=== PATIENT | male | born 1955 | race Caucasian/White ===

== ENCOUNTER 2023-08-23 09:16 | Outpatient (OUT) | payer MEDICARE, SELFPAY ==
[2023-08-23 10:37] LABS: Prostate Specific Antigen Scrn 2.72 ng/mL (<=4.00)
== END 2023-08-23 09:17 | disposition home or self-care (01) ==
LOC: LAB 09:22
PROVIDERS: PCP Family Medicine; Visit Provider Family Medicine
DX: Z12.5 Encounter for screening for malignant neoplasm of prostate (principal)
CPT/HCPCS: 36415; G0103

== ENCOUNTER 2025-02-17 10:10 | Outpatient (OUT) | payer MEDICARE, SELFPAY ==
--- OUTSIDE RECORDS SUMMARY | 2025-02-17 10:22 | XMS_ITS | CCD ---
Author Organization [facility] Care Team Providers Care Transplant Nurse Name Role Phone DR MARY BRAUN Admitting Unavailable APARNA, DR MARY Braden Attending Unavailable APARNA, DR MARY Braden Consulting Unavailable APARNA, DR MARY Braden Admitting Unavailable , DR MARY Braden Attending Unavailable , DR MARY Braden Consulting Unavailable Mary Braun MD Primary Care Provider Mary Braun MD Unavailable MARY BRAUN Primary Care Unavailable CARLITOS HOLBROOK Attending Unavailable MARY BRAUN Primary Care Unavailable CARLITOS HOLBROOK Referring Unavailable MARY BRAUN Primary Care Unavailable CARLITOS HOLBROOK Attending Unavailable LULA RICHEY Attending Unavailable MARY BRAUN Primary Care Unavailable Mary Braun MD Primary Care Provider Provider, None Primary Care Unavailable YOON, QASIM T Admitting Unavailable YOON, QASIM T Attending Unavailable Provider, None Primary Care Unavailable YOON, QASIM T Admitting Unavailable YOON, QASIM T Attending Unavailable Nelsy, Soy Ballard Attending Unavailable Provider, None Primary Care Unavailable Nelsy, Soy H Admitting Unavailable YOON, QASIM T Attending Unavailable YOON, QASIM T Referring Unavailable YOON, QASIM T Referring Unavailable YOON, QASIM T Attending Unavailable YOON, QASIM T Referring Unavailable YOON, QASIM T Referring Unavailable YOON, QASIM T Attending Unavailable YOON, QASIM T Referring Unavailable YOON, QASIM T Attending Unavailable YOON, QASIM T Referring Unavailable YOON, QASIM T Attending Unavailable YOON, QASIM T Referring Unavailable Allergies Allergy Classification Reported Allergen(s) Allergy Type Date of Onset Reaction(s) Facility (5 sources) Penicillins; Translations: [PENICILLINS] Drug Allergy 07-12-2012 Rash, Unknown [facility] (8 sources) Penicillins Drug Allergy 07-12-2012 Rash [facility] (1 source) Penicillin; Translations: [penicillin] Drug Allergy [facility] Repository Medications Current Medications Medication Drug Class(es) Dates Sig (Normalized) Sig (Original) acetaminophen 325 mg / HYDROcodone bitartrate 5 mg oral tablet (4 sources) Opioid Agonist Start: 11-06-2024 End: 11-20-2024 take 1-2 tablets by mouth every four hours for pain HYDROcodone-acetam inophen (Jackson) 5-325 MG tablet Indications: Closed bimalleolar fracture of right ankle, initial encounter Take 1-2 tablets by mouth every 4 (four) hours if needed for severe pain (surgical pain) for up to 7 days 30 tablet 11/06/2024 11/20/2024 Active aspirin 325 mg oral tablet (6 sources) Platelet Aggregation Inhibitor, Nonsteroidal Anti-inflammatory Drug Start: 11-06-2024 End: 12-04-2024 take 1 tablet by mouth once daily aspirin 325 MG tablet Indications: Closed bimalleolar fracture of right ankle, initial encounter Take 1 tablet (325 mg) by mouth Daily for 21 days 21 tablet 11/06/2024 12/04/2024 Discontinued (Therapy completed) atorvastatin 40 mg oral tablet (4 sources) HMG-CoA Reductase Inhibitor Start: 07-12-2012 take 1 tablet by mouth once daily atorvastatin (LIPITOR) 40 mg tablet Take 1 tablet by mouth once daily. 0 07/12/2012 Active celecoxib 200 mg oral capsule (4 sources) Nonsteroidal Anti-inflammatory Drug Start: 07-12-2012 take 1 capsule by mouth once daily celecoxib (CELEBREX) 200 mg capsule Take 1 capsule by mouth once daily. 0 07/12/2012 Active ibuprofen 600 mg oral tablet (4 sources) Nonsteroidal Anti-inflammatory Drug Start: 11-06-2024 End: 12-04-2024 ibuprofen 600 MG tablet 600 mg 11/06/2024 12/04/2024 Discontinued (Therapy completed) Problems Active Problems Problem Classification Problem Date Documented Date Episodic/Chronic Essential hypertension (4 sources) Essential (primary) hypertension; Translations: [ESSENTIAL PRIMARY HYPERTENSION] Onset: 04-04-2022 Chronic Fracture of lower limb (9 sources) Closed bimalleolar fracture of right ankle; Translations: [Displaced bimalleolar fracture of right lower leg, initial encounter for closed fracture] Onset: 11-07-2024 11-06-2024 Episodic Melanomas of skin (4 sources) Melanoma in situ of lower limb; Translations: [Melanoma in situ of unspecified lower limb, including hip] 04-26-2021 Chronic Other ear and sense organ disorders (1 source) Hearing loss; Translations: [Unspecified hearing loss, unspecified ear] 08-23-2023 Chronic Other ear and sense organ disorders (1 source) Unspecified hearing loss, unspecified ear; Translations: [Unspecified hearing loss] 08-23-2023 Chronic Other ear and sense organ disorders (8 sources) Mixed conductive AND sensorineural hearing loss; Translations: [Mixed conductive and sensorineural hearing loss, unilateral, right ear with restricted hearing on the contralateral side] Onset: 09-27-2023 09-27-2023 Chronic Other ear and sense organ disorders (6 sources) Bilateral hearing loss; Translations: [Sensorineural hearing loss, unilateral, left ear, with restricted hearing on the contralateral side] Onset: 09-27-2023 09-27-2023 Chronic Other ear and sense organ disorders (1 source) Mixed conductive and sensorineural hearing loss, unilateral, right ear with restricted hearing on the contralateral side; Translations: [Mixed conductive and sensorineural hearing loss of right ear with restricted hearing of left ear] Onset: 09-27-2023 Chronic Other screening for suspected conditions (not mental disorders or infectious disease) (3 sources) Encounter for screening for malignant neoplasm of prostate; Translations: [Patient encounter status] Onset: 04-09-2022 08-23-2023 Episodic Unclassified (2 sources) CONTACT W/AND (SUSP) EXPOS COVID-19; Translations: [CONTACT W/AND (SUSP) EXPOS COVID-19] Onset: 05-10-2021 Viral infection (1 source) COVID-19; Translations: [COVID-19] Onset: 05-10-2021 Past or Other Problems Problem Classification Problem Date Documented Da te Episodic/Chronic Fever of unknown origin (1 source) Fever, unspecified; Translations: [FEVER UNSPECIFIED] Onset: 05-10-2021 Episodic Unclassified (1 source) CONTACT W/AND (SUSP) EXPOS COVID-19; Translations: [CONTACT W/AND (SUSP) EXPOS COVID-19] Onset: 05-06-2021 Results Test Name Value Interpretation Reference Range Facility XR Ankle - right 3 Viewson 0 12-04-2024 Imaging Result: Multiple view x-ray of the right ankle shows intact implant with no signs of loosening, lucency, or degradation. Alignment is intact. No signs of infection, tumor, dislocation. [facility] Radiology Study observation (narrative) [facility] XR Ankle - right 3 ViewsOrde red By: Nic Saha on 12-04-2024 [facility] [employer] Work Phone: XR Ankle - right 3 Viewson 0 11-20-2024 Imaging Result: Stephanie palacio, Three view, AP, lateral and mortise oblique, save today to the [facility] permanent record shows stable right ankle mortise. Hardware is intact in good position and alignment, medial and lateral. Films were reviewed with patient at length. [facility] Radiology Study observation (narrative) [facility] [employer] Coding Summaryon 11-18-2024 Coding Summary HTMLBase 64 EqqfugwcBOo2vAn+PGhlY WQ+PX5CYFYaF55kgJKhyG 5mG9GMCXoATgghTTADYTl ZOzMujeOmPN1biANbUVVi IC8+TM3mUPUzHuexxKBtf 3A7fPH9Y32bfm0vQHbsrL E8HCXmXnRorqxzj5zpxVx 6IDcuNmluOyBt HBFbsT27BZG4aR93Je72d WOpxEIog8xrvUq5QkZpWN OsYBZ0hUaaBOucb9LdKWC tM68bsLGli8S4 LPSxjZuscTVoZxJurVO4l W8sWNayjduab4dlrjruEh i7fb35dWKmu4B8kHD0U0S tefE0OBYnhILa WyzdaFGIkJ4zmnzbp9lmg oekYiQnPDToACm0EAp5SE RttQneJgJhWQ82NID0TRN vzsIyP1IsZXRx dByeRfM4k5X3Oz4ZJ0JGN ykfA3OGXRAXSRxpvPP+PC 04oj88B5IaPfwdCuq5YFW jINY9fKZ4gV1t YHAhYNkid7J1aZQ8H1Lbu lNjod6hu9wdCRNpBSugV5 2ttNHfu0G8SIKdlOG7ZHF nsCfbRwQsjH94 Oyc+TTHmvNava6KhTnefq 4yih2pnnVq0IsixGQGwwv GchVipVZJ2e7SnBc0lLAP owQS0gGY4kO1u HgDgIcV7JZpqC912VcSsh CLgRhkeF53oS9SkqFN+PH TqEru6FUSkcIhfVS0kF4P hZGRpbmctbGVm aEfsIY7vHYHawjboTZLko J8rMEMjT8d3EeDmNkP7KA osU3OyLEKurnwfYe38dO0 vVgDrGwT4OYdu D9PorwC0DVYqfUJeNSgiP XU3W79fs7A4YWXpIPTzWO G0hNU0wM7okJsjvslqnNG mdDsgdmVydGlj RTogVCjnZ757JHFdwSzcD kNvZGluZyBEYXRlOiAgMD cvMjEvMjAyNTwvdGQ+PHR mZRH8rIexNWNz vWOxSFipUj3mkPmetWsqB D4jWEGwiezaAVEboO1xVG CsiVFyuTjsIF4rWQMmibx ex728NuNaIUT1 KLJhpZJfS5ShgV7yAlIxF PCuWLLnD4QvwAUsIZdiV7 86ZHmbZxP3ZSNbapDkY3Y sLWFsaWduOiB0 g5S6Py0Ac8AzjflnI5Tnu KIsGyTwIvahTBj9B7NvRo wvdHI+OB71MXNwIQ25BZd 7TUL6pNkdUPkk NHVyL5FuwM9mHiWiWMBuG GRkOyc+PHRhYmxlIHdpZH RoPScxMDAlJyBzdHlsZT0 wHi7dQMLlMBQe rMajyAItYzNkp8etETGpQ AtiKV7hkFovJ4OgeMD0XR Wzq6u2Cg91Y79uY7HiaAS +VOTzxCH6jAH6 eT5jIaEgNkI7AEuwE265Q iQzbCKaShcok2uom0fxqP q9FjU3NSGqouWyaLkcLHM 6q9FmCk78D42i IHdpZHRoPSIxNSUiIHZhb Snave5siP8nFy3+PGNvbC C5eTE3zN9oNnQnKrH0OJu kM533AjJhaXLk Dfmag0hfz0rbwQn7LjHbJ EOkeuRxrVmtXEZ4u5XtJs 60J0BmcKwie9EnVlh6ss2 9xIWkg5I0yHW3 Q4CuULCynnarqIYqwYvoA H9fZTFoiqycBPFkjD7oAF RoJ2s4ThSiRxR9SZamD6X vkcX7WEQzoDBu OVTbtKJPrG1edskal7qfs xnqUePvIRLdXRs2ASb1RX QggDilTeEjZVJ8NxD9XRA 4aVGmkC1esRjv wajknY8sVmb+IPB0tYRre XCUKJ6aTvxjiTR+PHRkIH D6qTmmZTnkZHJynA7uFEV cO4m8EeWhIhG1 XPnjP1LauvU9IYZpoZZwH EIwkPJSnU7fkwnvp2ceyt haKfTrJTMzQYv5LWc5SHK saWduOiBsZWZ0 BmR9XSG6uMCkgS2xuPsda nlffP4iDkg+QmlydGggRG S0VOu5X0NzOas7QRUwpKa zLB9mtQDmJMrn Vt2fkPcppKspGN2pVVHlz evho761OhEys9agQMUkcI ErGZcoDDE4L46gu4I2DFD pLNFkQYZ8kCM3 fV9ddRzydunowVDzuDblf tOxcCopIWbhFRqlU793FK PpcSqvOtHpHMb8D1KiXxw 8KQZpuUhhQR6b uJMuYShdEr0gxSurmWxfJ Y2yLDVaulcjn468VaBof5 ntRSXbbGDwMOwxNXX1W07 vr9V6GNBqAMYe KBZ3oMC3yN8asHsckawov GVmdDsgdmVydGljYWwtYW kvL891JSGinXwmWoGytGo 4M2DvRfz8AYIt oPekAX9fpCUzTTytSl4zu PnjuZkoTX4aIQHicvxwf3 96KiDrf0qmFJQakRYcVLl kRMJ1N72wn2C8 HHGvIJZmUXU4cAE9xL8cs GlnbjogbGVmdDsgdmVydG pqFYsvOVttP071FGNffUi nPlBhdGllbnQg LNjgCIy0O3TnMhmqpSM+P B95QZYgFJ66uGWteRNqi0 pfaVe5UjTfUFAwTIL0oZg aPUwcs6BtQJFz I76wdJAsa5X1DBPdcLvgt WAzBvPzyPK3oP7dGAxfol kqc2ahlcteWbagv8mnqr7 3rB51E57kYVlb ZHRoPSIzMCUiIHZhbGlnb c6dlW2yYl6+RWAjdQP5cV B8wK7uLFCyAcE6PRxyO99 9InRvcCIvPjxj c8ery2sflLa2UqQ5AGPch mCwmIfjOLF6x0YzTr67I2 9sIHdpZHRoPSIyMCUiIHZ vxUlskv8ktV3d Ii8+RYAnkZX7bUD4kB7xR zVzIfU7ZGarH626QyHejK JuWwsaT74zR9WynKY+PHR eKjh7LQMtmVpx EQ4agAFwVBleTm1nMPJ2J lBrVuLiGXbfM2VtGPHxeh ofvillhDO9PPIpBULkxV1 9Nt6yjJjhXNCi oTKJwH4qxwojz5ohcghgA nNgNDMsMOi9RJo8ACOmhE klEnUsCNQ0FiL5UZW5tML mkP1goEuomchl eA6aA0TtXLPpzhejWd90k T6nUsNrXsQ8HTcbFje+Q0 9MTElOUywgSkVSUlkgTDw vdGQ+PHRkIHN0 bIpkEWhtMYAfaE4kKGYpP 5n0BnXaKmX4RUtxB1XvOS QtgezwVj53mI5dJyShGpN 6IBpyM9VrgqA2 AQVqmARbXCvwVYM8Y21sk 4E3WYFfLHQuUWK7pXW4pB 1hbGlnbjogbGVmdDsgdmV ydGljYWwtYWxp J079UBLrmMzgFoN6AjI5T sA4HBU1X6DjRbs0QPPesE ckCA9hqLNaWYmxOx4xzBz tvXglVC8sOJMu lvfdZQEicH9eTMIuqZFno LtpZW5hEMIxxwnro686Kk VvTRE9YQPryBSuJ6NvfK6 yOiAjMDAwMDAw P6MiuCQnJGhgY983QSexO nY2DGIxsgBpK7BsUGKimK ulFoS0l8K8Tp70TBDOFLT yczwvdGQ+PHRk QHO5jKzmYYhgNSMrbX2lW OFmZ5p7MiMgSiC9UDzmN8 FaZGXbfhqsCt82yI4sLoA pWnI3NHfwU2Kj uaI4OOMcwWZjMAkqJMA0C 41bv6S1PLYpBNLtQWC5cJ P6bI6vuSheonshqUVilBo gdmVydGljYWwt KKohS178UCYztZwjWw2CJ OG7P7NvCvz2MUHdmQiyBE 5gfONcKGjzMx2zeSpnbGn rWB9aLIJlojph BCDbvE1ePSVlgZIkvEgiJ Q9uAXIhtcchs447SjGbMT M9YQGlaSPeB8MigL9fDgH cMWBiJUUaB3Mw qQFiUDxxU373KMxxNqU5U KEodvQkG6PnKBYgcQlhKz V3t1A4Up7XHKgjJ7QhP7N yeTwvdGQ+PC90 eb55O9LgPwnfDpi5DJTzB ND7qBR2xB1cQHLkPPfii8 A7kDO1M0OjjiCkzu4ap4s yUIIlPBdeJ06z qDTyk4T0PUQmaWV0IUGnw JbmDwLomW10Cie+PGNvbG qnf6UtBzbdu7wym2fueMo 9IjMwJSIgdmFs vVltSTZ7o6RiXz87Q07wK HdpZHRoPSIzMCUiIHZhbG thky8hhG0yLf4+PGNvbCB 7jXD9wA9vEbHg TkI7OOpaS218UnXlaKSxK lnvb9ioe6jrwYf9LcUxXG GjzxPviHekUBE8f4OcFv9 7C5YjcUdik3Mw Izy1kz14uHMvz8N6hKS9Z 3BhZGRpbmctbGVmdDogMC 5jJBJsoecfZLGseT8jSEU bY7u2UsFvKrD0 UVpoL4MrbzA1KVEteDGiA STgcQQOvO9lvkxul6apmn onNbApFVPxTUz6QJm0TFE saWduOiBsZWZ0 RpC2JJR1wZHgwH1zoXpqf wrcqW8eFmw+NWv6x3zenC EnUR6hvFS0PU69OJ26fHQ px6B3vLM0Z1Ta GVIoburmctabmVE1FAZrX JMwwU61Ui1bbFjnRs7rXE LxOTY3MYLeaQFtF4IvnL1 yOiAjMDAwMDAw X8CchOJfMQmtY214JRlqA oD0XXScrvZwC3LnAOQhsC giEaV0s0Y6As5UBL81XK4 8IS42mHNti2F8 fIL5E3IcVMKgjmnzlxepq ZQ8SCIdOHOcrS63Sh8gwG drAt4cYKAqTZW6CWIbfVJ qV4EoxC6jCtEy ALUwRTZrB8AqhYQoUSixC 554ZPdkQfH4UQPbweAiM4 PjKCUxmFrdZdF3m7C5Dl5 BCz25RT96PU57 pGThd1Q3tNQ2V7TnFKHyi vmlztlggBE6ICCdSWAeoC 24Hv7zqRcdSj3lLZQtAZV 7YKXizVRmD9Vw qB4zWoRhIHTrMZHlU9Pwv HHoJHeyI298NKlsOjR5DF LdvcUbQ6KwILDumTrcKpM 9e7V8Od6QKOci cdt4O3UmHwhgcQN+PC90Y YUcVY25wKKwkPWyf1tacK g8BoEbRZDlCOJ5xGgtTBw on4KwLZDnB52u bGF (more content not included)... [facility] MAGR Intraoperative Recordon 11-14-2024 MAGR Intraoperative Record MAGR Intra-Op Record Summary Primary Physician: QASIM YOON DO Finalized Date/Time: 11/14/24 09:01:05 Pt. Name: PRESLEY DE DIOS/Sex: 1955 MALE Med Rec #: [id number] Physician: QASIM YOON DO Financial #: [id number] Pt. Type: D Room/Bed: [facility] Admit/Disch: 11/07/24 14:36:41 - 11/07/24 20:10:00 Institution: Case Times MAGR Entry 1 Patient In Room Time 11/07/24 17:37:00 Out Room Time 11/07/24 18:46:00 Anesthesia Start Time 11/07/24 17:37:00 Stop Time 11/07/24 18:51:00 Surgery Start Time 11/07/24 17:58:00 Stop Time 11/07/24 18:45:00 Last Modified By: Bhavana Wang RN 11/07/24 18:52:36 Case Attendance MAGR Entry 1 Entry 2 Entry 3 Case Attendee QASIM YOON Bradley MD Long, Barbara RN Role Performed Surgeon - Primary Anesthesiologist of Career Technical Supervisor Record Time In 11/07/24 17:37:00 11/07/24 17:37:00 11/07/24 17:37:00 Time Out 11/07/24 18:46:00 11/07/24 18:46:00 11/07/24 18:46:00 Procedure Open Reduction Internal Open Reduction Internal Open Reduction Internal Fixation Ankle Fixation Ankle Fixation Ankle Last Modified By: Bhavana Wang RN, Barbara RN Long, Barbara RN 11/07/24 18:52:37 11/07/24 18:52:37 11/07/24 18:52:37 Entry 4 Entry 5 Entry 6 Case Attendee Cira DUMONT, Mary Cintron SNAP SHEARER Heaven Glover SNAP SHEARER Role Performed Career Technical Supervisor Scrub Personnel Hardboard Grinder Time In 11/07/24 17:37:00 11/07/24 17:37:00 11/07/24 17:37:00 Time Out 11/07/24 18:46:00 11/07/24 18:46:00 11/07/24 18:46:00 Procedure Open Reduction Internal Open Reduction Internal Open Reduction Internal Fixation Ankle Fixation Ankle Fixation Ankle Last Modified By: Bhavana Wang RN, Barbara RN Long, Barbara RN 11/07/24 18:52:37 11/07/24 18:52:37 11/07/24 18:52:37 Entry 7 Entry 8 Case Attendee Melanie Alberto Luke T RT (R) SNAP SHEARER Role Performed Scrub Personnel Medical Imaging Specialist Time In 11/07/24 17:37:00 11/07/24 17:37:00 Time Out 11/07/24 18:46:00 11/07/24 18:46:00 Procedure Open Reduction Internal Open Reduction Internal Fixation Ankle Fixation Ankle Last Modified By: Bhavana Wang RN, Barbara RN 11/07/24 18:52:37 11/07/24 18:52:37 Surgical Procedures MAGR Pre-Care Text: A.20 Verifies operative procedure, surgical site, and laterality Im.150 Develops individualized plan of care Entry 1 Procedure Open Reduction Internal Primary Procedure Yes Fixation Ankle Primary Surgeon QASIM YOON DO Surgeon Comment ORIF RIGHT ANKLE - ARTHREX Start 11/07/24 17:50:00 Stop 11/07/24 18:45:00 Anesthesia Type General Surgical Service Orthopedics Wound Class Clean Technique Details Closure Technique Primary Entire procedure No was performed via laparoscope or robotic assistance Last Modified By: Bhavana Wang RN 11/07/24 18:52:45 Post-Care Text: O.730 The patient's care is consistent with the individualized perioperative plan of care General Case Data MAGR Pre-Care Text: A.350.1 Classifies surgical wound Entry 1 Case Information OR MAGR OR 05 Case Level Level 4 Wound Class Clean Specialty Orthopedics ASA Class 2 Diagnosis Preop Diagnosis FRACTURE RIGHT ANKLE Postop Same As Preop Yes Postop Diagnosis FRACTURE RIGHT ANKLE Blunt or No Is the procedure No penetrating injury considered occured prior to Emergent/Urgent? the start of the procedure: Last Modified By: Bhavana Wang RN 11/07/24 18:00:13 Post-Care Text: O.760 Patient receives consistent and comparable care regardless of the setting Time Out MAGR Entry 1 Procedure(s) Open Reduction Internal Fixation Ankle Time Out Checklist Verifications Team Introductions Yes Confirmed Identity, Yes Completed Procedure, Incision Site, and Consent(s) Presence of Yes Site Verification, Yes Necessary Site Marking, Site Procedural Marking Equipment, Devices, Alternative, and/or and Implants Site Marking Verified Exception in Accordance with Facility Policy Anesthesia Review Antibiotic Received Yes All Anesthesia Yes Within an Concerns Addressed Appropriate Time Interval Prior to Surgical Incision Surgeon Review Anticipated Blood Yes Expected Case Yes Loss Risk Addressed Duration Addressed Critical and Yes Non-Routine Steps to be Performed Addressed Nurse Review Equipment Yes Fire Risk Yes Checks/Concerns Assessment Addressed Completed and Interventions Performed Diagnostic and Yes Sterilization n/a Radiological Test Concerns Addressed Results Displayed are Appropriate and Labeled Other Concerns Yes Addressed Time Out QASIM YOON DO, Time Out Time 11/07/24 17:57:00 Participants Sherif Mccarty MD, Bhavana Wang RN, Cira RN, Baldemar Mayers Deanna SNAP SHEARER, Heaven Glover SNAP SHEARER, Melanie Alberto CSFEvelia SNAP SHEARER, Melquiades Gomez RT (R) Last Modified By: Bhavana Wang RN 11/07/24 18:01:13 Patient Positioning MAGR Pre-Care Text (more content not included)... [facility] MAGR Preoperative Recordon 0 11-14-2024 MAGR Preoperative Record MAGR Pre-Op Record Summary Primary Physician: QASIM YOON DO Finalized Date/Time: 11/14/24 12:36:32 Pt. Name: PRESLEY DE DIOS /Sex: 1955 MALE Med Rec #: [id number] Physician: QASIM YOON DO Financial #: [id number] Pt. Type: D Room/Bed: [facility] Admit/Disch: 11/07/24 14:36:41 - 11/07/24 20:10:00 Institution: Pre-Op Case Times MAGR Pre-Care Text: Patient will be optimally prepared for surgery. Patient is free from s/s of injury. Provide information to patient/family related to plan of care. Verify patient allergies. Confirm identity and verify consent before the operative or invasive procedure. Entry 1 Patient Arrival Time 11/07/24 14:45:00 Preop Departure 11/07/24 17:35:00 Last Modified By: Kathy Wiggins RN 11/14/24 12:36:28 Post-Care Text: Patient is prepared mentally and physically and is ready for surgery. The patient remains free from s/s of injury. Patient/family express understanding of plan of care and participate in decisions affecting his or her perioperrative plan of care. Allergies documented appropriately. Patient identifiers and consent correct. General Comments: pt arrives to W ambulatory. denies CP,cough,cold, COVID like symptoms. denies diabetes, pacemaker/defib, sleep apnea. pt verbalizes understanding of post op anesthesia orders including no driving for 24 hours Kathy wiggins RN ONLY entered pre-op d/c time to finalize chart Finalized By: Kathy Wiggins RN Document Signatures Signed By: Kathy Wiggins RN 11/14/24 12:36 [facility] Operative Report - Surgeon/P celestino 11-13-2024 Operative Report - Surgeon/Physician [id number] [facility] Coding Summaryon 11-12-2024 Coding Summary HTMLBase 64 XmrrpyacUYc3mPr+PGhlY WQ+FG8AQTUfX41riMVteO 2qP8LFONiXTndnYGCXTFl XAsHlmyBhAD8yaZXpUYBd IC8+AD8gROHaAjnxfBRhh 5R8wTB5O03njc9vCAtmmG X8JJIxWeGbsrirz8fnrZx 6IDcuNmluOyBt WPGtoG22SAB1pF92Sj53m JSpoLHrn2znnKb3CfHtLR NcUXA8yJcaOJbqi0HlVEA qV90fyWJaw0L7 LQUqoDgxqCIoStFjxBH4e Y2eDMafqwplx1idicpeXh d0am77dVZts0I9pQY3N8A gmoP6JPJdpWDc RxpwzQPNyO6jtaite0lzi iseRlKqROJiZGi1EEj0UM MfbLkgZoVkIX72BQH3QAJ qhfGhL5IyLMSk iXntGxA8u4P0Bj0CE2OCK lccH9QAVAQSFFgueZB+PC 16cz84O8XuPngvCep9JLP yAPW8jPS7jB4s TDYwGQseq3W7uPX9O2Kzk rNxfh4gs2apNLAoTVjmR7 6ylRSgk9P0RLXkwEV9AJT kjYxeXdFniH43 Oyc+ELAmxNpqo9EeUhvnp 6plh2ymxXm5WxlgRALmpz IzxElxXLV8k6NrFu2rNFI yvBT1xPQ6sP8t YqIdAkJ9UYrqR444TvNvc XGeNzxnY99cP2HekVO+PH GdPmb7YHAimSbtMP0iI9N hZGRpbmctbGVm eHphKY4eSALskrzdWWTac D4uMUDuX5a1DzFgEsF6RL smI3RlBTRlnajrPr60rT5 bWiXrEeI5EQck T2AuomX0VRQkrVIpGAwzH IN4K50tm6Z1XEQjTPZhRH I9rKG9cI4sqSaznvzhmQT mdDsgdmVydGlj YXhyHXudN720IJSjpQprD kNvZGluZyBEYXRlOiAgMD cvMTUvMjAyNTwvdGQ+PHR xJAR9eHmiHGWt yNUfPUwyGg7rySifmRqbO R4kJHEcnynrWBMfwE6tWO RqtOXfrBzcWS5sEXOvmor oy960UvGmENB1 NHOahDUjE8NsiE3nIpVmQ OPyGGJoX6SfoSYvARjoW0 89YFkiPhB2ZTYyumReW3A sLWFsaWduOiB0 u4L7Il8Hw1VuajnmO0Jkd XFkFvIjItwwBKv4L6HrFs wvdHI+YA84WQJaVM69UYt 0RZT9vKdpOSvs OUKhB7CccX4fSdShIQLoM GRkOyc+PHRhYmxlIHdpZH RoPScxMDAlJyBzdHlsZT0 uNl5lFZJiMBXp eDhkaFVeFlRrc7sjUNAtM WtnKW4qmLueT4TtrZM1WJ Tsf2m9Au88E97rB9JzmBG +SSEtgOU3nXJ5 yZ9cXbQjDyK1IJxdY297O vLldJSkBnjgr9jwl0ebnW p6DrO5WDFdpoSebNcaNAK 8e4LaMh23R31f IHdpZHRoPSIxNSUiIHZhb Fidzm8mvC2uWz4+PGNvbC Y3kBT4rH2sImKdUnZ3KRu sJ379NxOmsBEo Sejwy5zbs4ymjUi8SsFlA ROmxfGizOyiZMO1k2MvLp 83L0UmoBezj7PiRtu2ub1 3bHSdy2X3jMP7 Z6UyKNWvmmxqxGThdLjpE U2yJOWwwxxkEJFmnN1vOW MvK5r2MvGpOxM6NDkpL5T tqvJ1YBKsdPOl UHHjuELMwT0mwyylh0cxh glpQwBlWPPfBWw7NWg2JA DikMtsEaMeQOT4QaU3NRN 5kAZfqS3ceRjb ryjgsM8qFbc+LBT2xPBdj MTUQO8zVupaoRF+PHRkIH Z7qKapUTmiRGSjtV7nVRL gQ7t9ShMsZxJ1 PVxhY4YpyoW4DHDfdPNvS RFyfBTJfV7faisyk7fxhn qzWcKrQRIyMSg8COy5WWR saWduOiBsZWZ0 TaW3TWI0vHSguF5wfCshu ezhzA4nZkh+QmlydGggRG V9IUn0K2LzQmq1LOLdeTn oHW9qgXSaISwz Kb8nmBrqlCpzTB1iNXRpn ozwm592PpEgp5lqKTLajQ ApKImuCEK1I62ra0T5SFV cYDXiCSW0hIC7 tB2whUfcwxgqnNNsvNoye eEtaFxqGRpaKVtlO990YX GgsMyzTlBpMTa0D0QaPey 3UPEzvSpbWA7w cIWhVFniPg7vmYkmcKssS V1ePPFamjpzj059YqQqn1 bgKFUmbUNaXJmuNKJ4P08 wa8L2LSJmFYEn NNX9uQC1kN4zhCfovlmpx GVmdDsgdmVydGljYWwtYW nwU364NLPqvCooCqQwkVl 1H2RcEfw0WGZr mItlVO5geYCvKWkyVt5bb AnopDaiNF3iKQDbvilgs5 90WwBkr6ndAGMfwLEpDNf xTTL0K28rw6I6 QAVcMFRtZDX2kKM7fA9rc GlnbjogbGVmdDsgdmVydG jkNQtbOTgiK087OLCviOt nPlBhdGllbnQg UVwqVFi8H2MnIcpltYP+P Q12CMKeFZ00rVYfoUBbq5 shbYy9GfNwDELhZQS3cXe sBYthn1TxGAJt F14uuKEtq4W2TLEfrLygs FFmMwUefOV6zH2xFKqmve hcl3itdemkXemzc9lfjz0 9vG63T96eMEmz ZHRoPSIzMCUiIHZhbGlnb e9waM5eQb8+ITGtlMG2mD S7sC0oWMIyDkR7SFrfL77 9InRvcCIvPjxj o3mpy8krxOw1TcQ1HVZvc wBwkFwqBOI1a2AgRn15C4 9sIHdpZHRoPSIyMCUiIHZ aeRdzfe2izS6y Ii8+XRDosQZ0jBY3aB3sP qRhQwL7ZIzfG231EvNzpE QbLxcfK68lQ7CoaDA+PHR dDwa8YGLieAta QS3xqFJoNUuhKa7lNXE1Z wFtBwTtVEhlH6StPVLkab nwcorhrZZ5CKRzAYCfeN4 1Sa5yxIjaTZYz qKCZfR6dqlqok6zexepgX fMdTZTiTAz4BTz8UVVnmO riDwAsIUZ2KrX8JIT3aJX hjD8kmPahpbgy iQ9fA6JeIDQubukhIz16x A3rYeVkGgE8YYgvJmr+Q0 9MTElOUywgSkVSUlkgTDw vdGQ+PHRkIHN0 mDanNBrtLKVhoV3zLSPkV 2s8JsMbDnD0RVzuK1LgSW RrdnvkLs50vE3jTqNyVcZ 3NYtcR0RcweD0 EIRunLBhXVwtFGK7H20mf 9M9SIUiKDOdXIY7fYW9qR 1hbGlnbjogbGVmdDsgdmV ydGljYWwtYWxp F410YXZsmFxhBeW7BoX7H fW8DOE4C7DhXca3NCJgvY iqBN4ouQCrKGtvGa1beTx uaNiwUF9sTNOr kblkLZCtuN3dDNWziIZbj QdcTG1tKBXapinvv057Mt BxRLT7SWMwhKBzT3QngA1 yOiAjMDAwMDAw Z4OdpWIlPEqaX366THbaX vQ1XOJjmxJrN0RnBJPlzE llAeS9r3Y0Zw69ZUYRWGR yczwvdGQ+PHRk OAI4fWqqNFafIMMtkJ7uN DFgU6h2QeUeClI9PBhaL8 JqRKTfoichHq82pP7rByS bIqH0XJgtT4Cq hmM9GRXszPOcIMemMUR2O 71qv1V3WHHgGABvJDK4wZ F5jA2kaVwqiksrwDIxdSz gdmVydGljYWwt HGqdM243XVMqkFlzJv7AQ XF2X4CjBmq1HIImjHrnBJ 0vwNInBTndGm0ktWlrdHv zOS3xSQXfakcs ZESbbW1dXFQxuPLkcUtkC F3sCWCcybldr714RgVsIL R4UBRupQNmS2DvzN5kUjP kWMUcOGEcU9Ch wNZjOHriB898JVyvYoT2U IXsccRyW0OvKOHntDdqWb J0c0H5Ko7QiKVrG3XvH1l 3X8AwXqskiNT+ QW68LUTxPG24vJHpoSNqw 7nykOs7MyJjWMQqVZS8iC haRKdpg9KoRJYsD60bnNQ ru1N6JYFzyQyy jDKdBbEoqKS6xW7kGZaub fvaw6kqhkauZolte1ceon 40aM97X42yJQnfKKNmVSO zMCUiIHZhbGln xu6paK8lIl4+ELEonLI3b KL0hX1hLkWaOxK0BQokZ0 86KzUhnBRlXwemz5dhq6z bhBc9SkRwMHSb arYysBpaYPC0d4GjEn73G 29sIHdpZHRoPSIyMCUiIH WvyWvimy3udJ7iOn0+PC9 tt6gvwj24oN60 dHI+UXSjPQN3uZebMIhrM TRasW1rDRbnCrE5BHJxAl HngL36cGAiTBhzRk7byHf ypXekMT8jTHVa mvhin231HoNpc1odSAWzs RSkEMrbLLI4Y84sz7X2HM UcAJBuPFA4sDH4oF2cuLg nbjogbGVmdDsg xnTxuAryYAhrSOkuL373F OMvjLvmAoOsuBBjX7xgvn SJQZ0yEirynJD+PHRkIHN 0eWxlPSdwYWRk zP8qFBLmV3i1TeHyIdM6S CszB7MqrlL1UTBjdZVhZK MufIOWnF5frclid6mgvuf gIzAwMDAwMDt0 CZq9PDCzfIibAuBrRVA4I iL4OPS7xNOxaQ2huQuhuj mtwT5jXmb+RklOOjwvdGQ +RIIdOZI3tGpd EBgjIQYseF0fYQRkD5p0O jKkBxS0OAdoZ2IdwiZ0TB TauVKtPAVidEQVaW5esoc ji4amugdoLfBp UUReENi6GGo2HYTzmDzeF gYnUYC0BdG9UPN2dNTotD 7gvYyfuokmeI7nYwx+TVJ OOjwvdGQ+PHRk VXZ6tRnmPNzrEXUdzP3pH PIdL6r3JqViRgI6IAvkL3 EgtmB9VMCzrRHuOTIpyTA WeH8bssnor2ab xcolDmZmXEFbMBl7JKr7P NXmtGbxBcOrJJM8NfH3IM I8iJAzgW9dwNpyhhuicP2 wOyc+YIG9ATC9 LF40MH08U0MrLppkbEHfu +PHRhYmxlIHdpZHRoPS evNEQaYbQavUgqGB3xOc1 yZGVyLWNvbGxh cHN (more content not included)... [facility] Coding Summaryon 11-11-2024 Coding Summary HTMLBase 64 MlnjmkysTQx5mSd+PGhlY WQ+DB7MQJJxU89ilBDguR 0lU3TUOXpIAqmvOOTADTp FXaGyguJyKJ6qjEPgJIZs IC8+HX3iBMGlRyuqxUJnf 2R9nMW9C45xwb5kCTjssN B8WPHaCsLlbztcy8cynMj 6IDcuNmluOyBt HBArbU54FBY2iB46Cm29k CGqwUFse9tahAa9TeLvJD BpQGE7rQxeIJeru9RyHSA mG07whTSmo7G5 GOPynJswnEKpBvMahUP1t A2pNHzesgejc4vlbiajGr n4yc81jZPaj0S5rON2C2W vdvC3YLLvrWGo TnwknKZCcK7hixpig3nva veuWoQrIEBsITq8RDt9MB YizTvcMuAvNJ14MBH7HIZ fjfCqQ3BgHKEo dEgyCpS6y7D0Pg0UL5DNL dmqP1BIJHSXBJlwgWS+PC 79kn83C7KpNjyvBpo3ICV iYVQ5iDM7wW1u FAFqYWnpz0P1nDA7T2Obq vHamv6rg6ceCKQqFQqrL1 0jaWBnx3P5QFIgfXU5HBC cwJlrLcUpaO89 Oyc+DWTgsAfnn4YxRcflz 2jzp8ysfId1MducHXWafe XizNfgLZS8b5YdAm4wOOD trXX7uZT8tN1d LhPuXgM0AKejN177LuFpw IVbIxxfZ48aQ0DcdBA+PH AfGao5NBJbpWpdXS3sD5N hZGRpbmctbGVm vGwyUY5uGOOhsanrGXCdt A7sQJQfE6f8JuRiEgF9AT pwZ0KtPQItfyicCu37gM8 fCmHzNpH0NVfg R4LbyiG8BLOrfOFhQTlwM YJ5B94zd9S9OXXcLENcYP A8cDN2uJ2grDobndjygYU mdDsgdmVydGlj KZuqDCsiE864QQOwnCxyP kNvZGluZyBEYXRlOiAgMD cvMTQvMjAyNTwvdGQ+PHR aNAO1tKwsWTTo zOIpYHqtSz2omAcaqJhjR M0fPIPhvritSFKqfQ6hFY UhuFIptKphMB3vFGKanuq sg701ZvZoKFQ4 HCIpwLIcD6WcxM7gEaEjT ULhRPBtN8XcdGXwGOkvC8 39JWmqAgC8ZGKbknTvA5P sLWFsaWduOiB0 t2D0Ef2Ox1SzoljhT6Fmr YXfXlImMukjXLz1Y7CqGz wvdHI+RN17YCGmYC41TLo 0QBZ1gEhvIFze TCZzX8UgpI8cUjSpENRxX GRkOyc+PHRhYmxlIHdpZH RoPScxMDAlJyBzdHlsZT0 pKq6yDYZpMTFz uLgmvWIzCfRtp0dxATTlN TuqRT4nnExcG5DceWI2SZ Nvy2v6Nv82N16uY0DhmBE +VLItmKS9cBL1 nY6oZaVxSsQ2CRzbV657A sKrlHXdRlbpq3rxw0kwxG e8CgJ8MUUjafSgdWvoQXK 4g8ObSu81A43v IHdpZHRoPSIxNSUiIHZhb Vpsos2roM8wUc9+PGNvbC J9kUT1cX4ePaOcYfY4SVl bB451SoRonVHv Dbtso7jyn7pikRx0UhCaZ DGcyvRakJbdFBX6b4NxHj 36Z6UtjJmxr2XdBwi5ua0 2zTYgk9Q8cQA7 E7ChMCVukkecxDAgzSddU M9oGGVbnbwiLPLzoC9gPU YhJ3r9AzBfLlQ0INjiX6U anlN1FWKheVJx VUTgbHOEwL1ekmprj4qyj cnbGhVlBHKtJRv8CJl0WY SgtKtbOnXxVMT4JpV3CMM 2pARraD1evLvm nbknjQ1gMkl+YEV0uEJzu EPXDO8gUqmwtZJ+PHRkIH C8lOybMKgeGYXjtB4xOTM dP7w0WyDdLvO8 FYjuH4WaogH0SQTqhIGlX LDwwWPClL9wjivdp4yanu mnJkIaIAMkQNq9RSr0GRH saWduOiBsZWZ0 TcU7SET3bLBagQ4viAgcc kaohY4zFrw+QmlydGggRG G9ZUs1R2VaBqq5MWUzmIw wNE4ykRRxTSko Mu5prPmkmYbfFO8iKKTao awfc485CnWeu4lbVXYpgT LzYFxcJUB1Z55gb0M4BUK zSRJhJYT8sZY4 yE4lsOvdzowviSJcxHrhd zEtmAptACnaJKjuB616QA LftDenAjUiCBx3J9HaDbl 4HUBdpHucMX1b wXKsJViuFa5ogEelrPpkJ Q5hYUMxqwydv613AnVyz9 zgOIVetZYxGAlxXHD8P92 dh7F2IPRsLOXm QRR9cOZ8aG6tjVbqpdaym GVmdDsgdmVydGljYWwtYW kcE176ZVHfuUfgZqDxpTt 5Q1NhAul5XADf dNuqLT1spTHiQZjyAn5qd WkiuSsoBY8gXZWsayrda6 90NkHax1fnECChnGKyKId xDQJ2O09xt7Y5 BYHoGBLfJCF7fIL0hJ7ym GlnbjogbGVmdDsgdmVydG vkCWrtVWzeU473MCMqxQc nPlBhdGllbnQg COxoBGn9Q4RwFmzfzUQ+P K06NBGtJD57lAUnnJPzg3 haoLa4WxLsORHwVCS3uHu xOPxks4LoDCLc R36trLNba8U8GKJpeJuux QXmMpQrdAS9bU1lFWxkbs ymn0lxbayxXkamk0zras2 7xC40I96sAOuk ZHRoPSIzMCUiIHZhbGlnb r1swA6hYz6+BZYgbCW1dG M6fW0sUQZjUmQ8BTejN21 9InRvcCIvPjxj q5kmm7vujKq6FvQ5MIBvs bZtxUrzAVI4n2EoMp47S3 9sIHdpZHRoPSIyMCUiIHZ jyYpsyv4hpJ0m Ii8+BFEujMN5zEV5uA0sQ aMdDsM1RFkiB234DfAxnW TdAxjzG05nV8XhmDG+PHR zKgh7JDFfhVxi RY2leUNtVQvvXr2nOYE9Z gAoIuQiJCamM2IhMCYkhz tknazbqPH3XKBePDZehR6 8Qr1ohDoyHTUg wKKKbC7ebfjxy3oiodvtB zWvMFRvUOm5UYu8UIKdiT zvJkOcHPJ9IrJ1XHD5lNA slE8scJhwvset xV9zV9LcRNYukbhvCe45y I2iFbXfUuM3DKgfAhl+Q0 9MTElOUywgSkVSUlkgTDw vdGQ+PHRkIHN0 zJbmGPwaZOBxeA7sZMOyP 0d7CzEfSiJ3HEbuD8AnTF IzchumXu64qO5vChZdSkU 8TWogX9HeijX7 UFDvhCMsVVbeXSZ8Q25ev 3I0OKUtIAPlPLA3mDJ2vH 1hbGlnbjogbGVmdDsgdmV ydGljYWwtYWxp I214WGCbpUsqQsQ2RrH0X lC3VKP8W5DcTss2FNQvxC vfLH2hsJCqOBdlQu2niTr ipBigGI9cLCGs zuutKKKlqJ3fTXMjnAFsz OcgZG4pLTVcpidog826Jn AtZAK0WGJhvQPfK4PpmF3 yOiAjMDAwMDAw O4StoEQeJMcrX674OIrrH nL2PUHlytGdG0ZfTLYmmY ouDgO8t2R5Jf72ZMKMPHB yczwvdGQ+PHRk RUI4bAqaGHdnPLPonJ4yQ CIjM1c2ZuDkAbH1UGxcZ6 TeDPIhmmboRj72aQ8uClO pIxZ8SRdjV0Fv xpR0ZYDgiEAsFVbgFDW2V 38nh5D1LVZsIZUjWCQ2iM I3vQ7kcJwkiedjrUVfuQg gdmVydGljYWwt DNxxN387ZBEvlQhuQp7AQ EO8P2EbTva9TCAnbHopSY 9jkPIwXSmsNx0xbFuvwWz qKZ4wTOHccqki XMFhwR1wHEIqpDBuwMtrY Z9bNOWuvxgrg920NpDgBJ E9YSVslJCjM3MvvW8oXwF uTIOoSRLbC0Rl vNSdGZjuV708ICyfPbG6H PAtncZfF6IqUGOxcFzbZm Y3j2B9Ep4LgXWcUTOiDM9 0IGluIGEgQmVk NJ10BR94X4LoVqoksNOot +PHRhYmxlIHdpZHRoPS cfKGPmQlXhkHkuWY4gBq6 yZGVyLWNvbGxh oIRxWoKgu8xwKSWmMJytG T8ztIugS8BifTX4NBQlz7 h7Oo60J98kY8IjoKN+PGN ydSC6wRS8oM8a WvGuPiV0FPkqW596AaRsr DNyQykvq0yov9itoYj1Yo PpXNAjzwYxqBhmYXD2x9T tEg72G86xWAur ZHRoPSIyMCUiIHZhbGlnb v1xhW7lQc3+MDNocHD0qQ L8uK5mTtRqDdP8SCciG52 9InRvcCIvPjwv D46pI3NzkUU+HBIeEch6Q QAgbUiyES1hqYQdFItuIw 7sGGI0AeXqWlYiZNqvK1N hZGRpbmctcmln vRI8OMCxFFUvoS21Ne5sv TinFn0fYGLxSGT4YTBrmU CaZ4MroI9jXkZyAEYkLFO tS9NdfRTjNVhm P251XDroWwD7SHTkitVoZ 0WsQSWxaAksEdN0e0B2Id 5ByIvatXXjWL6iEvDpSUd 8E0QqJru3OKUv nUmyEX6abXUcAEheQg2kj DpjrRlmKP9dFLZgzlfhi3 54TzCtz0gmTATwjYHmQTo gAAF8S09xb2N0 KFNuYCFoUYR3eRZ8oQ5sw GlnbjogbGVmdDsgdmVydG hxKNeeNGtiE327XVBssEr sVuKKMkl7P8Eq Xng5NGSxvBiiOY4yaFUnQ JsfJh8ebGljqCimHB7dXY Lmqhdvf984FlDnv9foXAE wcHQgVGltZXM7 W37ao7Z1BVUqBEStOCA5k QX2aU9imElbigupfPIsrA globNqsBrzIKthSFqcL93 1DVRgbMdbLi5D Rnh7W0GoHtq4OZJxnTezG D6syQTaBDfzSx4iiFhqhQ eaCH3pVJIhfjeix861QvA te9ohUSLlePPj SVyyWQT0W55xm1R8KVUuV UYvRSY9dCG8oG6yvLtvud ogbGVmdDsgdmVydGljYWw bUYizG489YYAu cDsnPlBheWVyOjwvdGQ+P U25ab80F2ElOjpvWwr9YY ZpHAQ3dLT9cP6wIZIdHIi tm6I9cGW5D2Rr cmR (more content not included)... [facility] MAGR Postoperative Record MAGR Phase II Record Summary Primary Physician: QASIM YOON DO Finalized Date/Time: 11/11/24 11:16:47 Pt. Name: PRESLEY DE DIOS./Sex: 1955 MALE Med Rec #: [id number] Physician: QASIM YOON DO Financial #: [id number] Pt. Type: D Room/Bed: [facility] Admit/Disch: 11/07/24 14:36:41 - 11/07/24 20:10:00 Institution: Phase II Case Times MAGR Pre-Care Text: Patient is free from s/s of injury. Patient remains free from compromised physical state related to surgery or anesthesia. Patient comfort maintained. Patient/family verbalize understanding of discharge instructions. Entry 1 In PACU II 11/07/24 19:28:00 Discharge from PACU 11/07/24 20:10:00 II Last Modified By: Paulina Johnson RN 11/11/24 11:16:43 Post-Care Text: The patient remains free from s/s of injury. Patient's vital signs stable, circulation maintained, return to preop mental and physical status, opsite/dressing intact, minimal or absent nausea and vomiting, tolerates po intake. Patient verbalizes adequate pain control. Patient/family express understanding of discharge instructions. Finalized By: Paulina Johnson RN Document Signatures Signed By: Paulina Johnson RN 11/11/24 11:16 [facility] Consent Formson 11-08-2024 Consent Forms [id number] [place] Outside Recordson 11-08-2024 Outside Records [id number]#1 [place] Telemetry Stripson Telemetry Strips [id number] [place] Anesthesia Noteon 11-07-2024 Anesthesia Note Patient: PRESLEY DE DIOS Age: 69 years Sex: MALE : 1955 Associated Diagnoses: None Author: Sherif Mccarty MD Postoperative Information Post Operative Note: Post Anesthesia Care Unit. Anesthetic utilized: General, LMA used.. . Health Status Allergies: Allergic Reactions (All) Moderate Penicillin- Rash. Physical Examination Vital Signs (last 24 hrs) Last Charted Temp Temporal L 36.1 DegC (NOV 07 18:50) Heart Rate Monitored 63 bpm (NOV 07 19:05) Resp Rate 16 br/min (NOV 07:) SBP H 136 mmHg (NOV 07:05) DBP 74 mmHg (NOV 07:) General: Alert and oriented, No acute distress. Respiratory: Respirations are non-labored. Cardiovascular: Normal rate, Regular rhythm. Neurologic: Alert, Oriented. Review / Management Condition: Stable. Assessment Anesthetic outcome No anesthetic complications noted. Adequate pain relief. No Complaint of nausea and vomiting. Plan Transfer/ Discharge: Patient can be discharged from PACU when criteria met. [Electronically Signed on: 11/07/2024 19:09 EDT] Sherif Mccarty MD [Verified on: 11/07/2024 19:09 EDT] Sherif Mccarty MD [facility] Anesthesia Note Patient: PRESLEY DE DIOS Age: 69 years Sex: MALE : 1955 Associated Diagnoses: None Author: Sherif Mccarty MD Preoperative Information Anesthesia history: Patient history: No nausea and vomiting with anesthesia, No prior anesthesia problems, No problems with local anesthetics. Review of Systems Constitutional: Negative. Respiratory: No shortness of breath. Cardiovascular: No chest pain. Health Status Allergies: Allergic Reactions (All) Moderate Penicillin- Rash. Current medications: Home Medications (1) Active ibuprofen 600 mg oral tablet 600 mg = 1 tab(s), Oral, q6hr Problem list: All Problems Tobacco user / SNOMED CT 082795368 / Probable Histories Family History: Patient was adopted. Procedure history: History of repair of inguinal hernia ([id number]). Comments: 11/06/2024 14:33 Jeff Farley RN left Arthroscopy of knee ([id number]). Comments: 11/06/2024 14:32 Jeff Farley RN bilateral Cataract ([id number]). Comments: 11/06/2024 14:34 Jeff Farley RN bilateral Colonoscopy ([id number]). Social History Electronic Cigarette/Vaping Assessment Electronic Cigarette Use: Never. Alcohol Assessment Use: Current. Beer, Daily Tobacco Assessment Current everyday tobacco user Tobacco Use:. Smokeless tobacco user within last 30 days Smokeless Tobacco Use:. Substance Abuse Assessment Substance use: Never. . Social & Psychosocial Habits Alcohol 11/06/2024 Alcohol Use: Current Type: Beer Frequency: Daily Substance Use 11/06/2024 Substance use: Never Tobacco 11/06/2024 Smoking tobacco use: Current everyday tobacco Smokeless tobacco use: Smokeless tobacco user wi Electronic Cigarette/Vaping 11/06/2024 Electronic Cigarette Use: Never . Physical Examination Vital Signs (last 24 hrs) Last Charted Temp Temporal 36.5 DegC (NOV 07 14:45) Heart Rate Monitored 83 bpm (NOV 07 14:45) Resp Rate 16 br/min (NOV 07 14:45) SBP H 140 mmHg (NOV 07 15:04) DBP H 81 mmHg (NOV 07:) General: Alert and oriented, No acute distress. Airway: Mallampati classification: II (soft palate, fauces, uvula visible). Mouth: Adequate opening. Respiratory: Respirations are non-labored. Cardiovascular: Normal rate, Regular rhythm. Neurologic: Alert, Oriented. Review / Management Laboratory Results Plan [place] [employer]hesi[employer] (ASA) physical status classification: Class II. Anesthetic Preoperative Plan Anesthesia: General. , Plan for LMA. . Anesthetic plan, risks, benefits, and alternatives discussed with the patient and/or family. Patient verbalized understanding. Informed consent was given. Consent was signed by the patient. present at interview.. [Electronically Signed on: 11/07/2024 16:11 EDT] Sherif Mccarty MD [Verified on: 11/07/2024 16:11 EDT] Sherif Mccarty MD [facility] Inpatient Patient Summaryon 11-07-2024 Inpatient Patient Summary [place] [id number] Patient Discharge Instructions Name: PRESLEY DE DIOS Jane : 1955 Patient Address: [address] [place] [address] Primary Care Provider: Name: Provider, None Phone: After you are discharged if you find you have any questions, please, call [phone] to speak to a nurse. The Pharmacy at [facility] is open Monday through Monday from 9A to 6P and Monday and Monday from 9A to 5P Discharge Diagnosis: Closed bimalleolar avulsion fracture of right ankle Prescription Information: If you have been given a prescription for narcotics, seek immediate medical attention if you have any difficulty breathing or any sudden status changes such as confusion and sleepiness. If you or anyone you know is experiencing suicidal thoughts, mental health, alcohol and/or drug addiction problems; contact the [facility] 21/11 Crisis Hotline -Text 5WSXQ jy 120035. If you received any narcotics, sedation, or any other medication that causes drowsiness for the next 24 hours, unless otherwise directed: ? Do not drive a car. ? Do not operate machinery such as power tools, lawn mowers, drills, sewing machines, or stoves ? Avoid alcoholic beverages and drugs for allergies, nerves, or sleep ? Do not make important personal or business decisions or sign any legal documents [facility] would like to thank you for allowing us to assist you with your healthcare needs. The following includes patient education materials and information regarding your injury/illness. PRESLEY DE DIOS has been given the following list of follow-up instructions, prescriptions, and patient education materials: Follow-up Instructions With: Address: When: QASIM YOON [facility] Agent Partner [address] [place] [id number] Business (1) Comments: Follow up Stephanie JOSSIE's building per card With: Address: When: None Provider [address] [place] [id number] Medications During the course of your visit, your medication list was updated with the most current information. The details of those changes are reflected below: New Medications Other Medications acetaminophen-hydroco done (Jackson 5 mg-325 mg oral tablet) 2 tab(s) Oral (given by mouth) every 4 hours. as needed as needed for pain. Refills: 0. aspirin (aspirin 325 mg oral delayed release tablet) 1 tab(s) Oral (given by mouth) every day. Start the day after surgery. Refills: 0. Medications to Continue That Have Not Changed Other Medications ibuprofen (ibuprofen 600 mg oral tablet) 1 tab(s) Oral (given by mouth) every 6 hours.. It is important to always keep an active list of medications available so that you can share with other providers and manage your medications appropriately. As an additional courtesy, we are also providing you with your final active medications list that you can keep with you. acetaminophen-hydroco done (Jackson 5 mg-325 mg oral tablet) 2 tab(s) Oral (given by mouth) every 4 hours. as needed as needed for pain. Refills: 0. aspirin (aspirin 325 mg oral delayed release tablet) 1 tab(s) Oral (given by mouth) every day. Start the day after surgery. Refills: 0. ibuprofen (ibuprofen 600 mg oral tablet) 1 tab(s) Oral (given by mouth) every 6 hours.. Take only the medications listed above. Contact your doctor prior to taking any medications not on this list. Medication leaflets, if any, will display below Diet & Activity Patient Activity Level: Non weight bearing Patient Diet: Regular Patient Activity Restrictions: Discontinue Alcohol Use, No driving, No heavy lifting, No Sexual Activity Patient education materials, if any, will display below ORIF Surgery for an Ankle Broken in Two Places (Bimalleolar Ankle Fracture): What to Know After After having a surgery called ORIF to treat a broken ankle, it's common to have some pain and swelling. You may also have a small amount of fluid coming from your cut for surgery. Follow these instructions at home: Medicines ? Take your medicines only as told. ? Take your antibiotics as told. Do not stop taking them even if you start to feel better. ? You may need to take steps to help treat or prevent trouble pooping (constipation), such as: ? Taking medicines to help you poop. ? Eating foods high in fiber, like beans, whole grains, and fresh fruits and vegetables. ? Drinking more fluids as told. ? Ask your health care provider if it's safe to drive or use machines while taking your medicine. If you have a splint or boot that can be taken off: ? Wear the splint or boot as told. Take it off only if your provider says you can. ? Check the skin around it every day. Tell your provider if you see problems. ? Loosen the splint or boot if your toes tingle, are numb, or turn cold and blue. ? Keep the splint or boot clean and dry. If you have a cast or splint that ca (more content not included)... Normal [facility] PACU Recordon 5 [facility] PACU Record [facility] PACU Record Summary Primary Physician: QASIM YOON DO Finalized Date/Time: 11/07/24 19:37:08 Pt. Name: PRESLEY DE DIOS /Sex: 1955 MALE Med Rec #: [id number] Physician: QASIM YOON DO Financial #: [id number] Pt. Type: D Room/Bed: / Admit/Disch: 11/07/24 14:36:41 - Institution: PACU Case Times MAGR Entry 1 In PACU I 11/07/24 18:50:00 Ready for PACU I 11/07/24 19:28:00 Discharge Discharge from PACU 11/07/24 19:29:00 I Last Modified By: Riana Denis RN 11/07/24 19:37:06 Finalized By: Riana Denis RN Document Signatures Signed By: Riana Denis RN 11/07/24 19:37 Normal [facility] Operative Report - Surgeon/P celestino 11-07-2024 Operative Report - Surgeon/Physician Patient: PRESLEY DE DIOS Age: 69 years Sex: MALE : 1955 Associated Diagnoses: None Author: QASIM YOON DO Basic Information Pre-op dx-right bimalleolar ankle fx-dislocation Post op dx-same Procedure-Right ankle ORIF(Lateral and medial comp) Gen anesthesia EBL-o TT-40 min 300mmHg Specimen-0 Hardware-Arthrex SS ankle tray Complications-0 To PACU in stable condition. Health Status Allergies: Allergic Reactions (All) Moderate Penicillin- Rash. Current medications: (Selected) Inpatient Medications Ordered LR 1,000 mL: 20 mL/hr, IV acetaminophen-hydroco done 325 mg-5 mg oral tablet: 1 tab(s), Oral, q4hr (int), PRN: pain acetaminophen-hydroco done 325 mg-5 mg oral tablet: 2 tab(s), Oral, q4hr (int), PRN: pain ondansetron: 4 mg = 2 mL, IV Push, q6hr (int), PRN: Nausea Prescriptions Prescribed Jackson 5 mg-325 mg oral tablet: 2 tab(s), Oral, q4hr, PRN: as needed for pain, 30 tab(s), 0 Refill(s) aspirin 325 mg oral delayed release tablet: 325 mg = 1 tab(s), Oral, Daily, Start the day after surgery, 30 tab(s), 0 Refill(s) Documented Medications Documented ibuprofen 600 mg oral tablet: 600 mg = 1 tab(s), Oral, q6hr, 40 tab(s), 0 Refill(s) Problem list: All Problems Tobacco user / SNOMED CT [id number] / Probable Objective Vital Signs 11/07/2024 19:01 EDT Heart Rate Monitored 69 bpm Respiratory Rate 18 br/min Systolic Blood Pressure 138 mmHg HI Diastolic Blood Pressure 77 mmHg SpO2 98 % Oxygen Therapy Room air 11/07/2024 18:55 EDT Heart Rate Monitored 72 bpm Respiratory Rate 18 br/min Systolic Blood Pressure 137 mmHg HI Diastolic Blood Pressure 73 mmHg SpO2 97 % Oxygen Therapy Room air 11/07/2024 18:50 EDT Temperature Temporal 36.1 DegC LOW Heart Rate Monitored 78 bpm Respiratory Rate 18 br/min Systolic Blood Pressure 134 mmHg HI Diastolic Blood Pressure 81 mmHg HI SpO2 98 % Oxygen Therapy Simple mask 11/07/2024 18:42 EDT Systolic Blood Pressure 90 mmHg mmHg Diastolic Blood Pressure 50 mmHg mmHg 11/07/2024 18:40 EDT Heart Rate Monitored 55 bpm bpm Respiratory Rate 14 br/min br/min SpO2 98 % % 11/07/2024 18:39 EDT Systolic Blood Pressure 83 mmHg mmHg Diastolic Blood Pressure 48 mmHg mmHg 11/07/2024 18:36 EDT Systolic Blood Pressure 85 mmHg mmHg Diastolic Blood Pressure 48 mmHg mmHg 11/07/2024 18:35 EDT Heart Rate Monitored 50 bpm bpm Respiratory Rate 14 br/min br/min SpO2 98 % % 11/07/2024 18:33 EDT Systolic Blood Pressure 94 mmHg mmHg Diastolic Blood Pressure 54 mmHg mmHg 11/07/2024 18:30 EDT Temperature (Route Not Specified) 37 DegC DegC Heart Rate Monitored 69 bpm bpm Respiratory Rate 14 br/min br/min Systolic Blood Pressure 116 mmHg mmHg Diastolic Blood Pressure 56 mmHg mmHg SpO2 98 % % 11/07/2024 18:27 EDT Systolic Blood Pressure 104 mmHg mmHg Diastolic Blood Pressure 55 mmHg mmHg 11/07/2024 18:25 EDT Heart Rate Monitored 54 bpm bpm Respiratory Rate 13 br/min br/min SpO2 97 % % 11/07/2024 18:24 EDT Systolic Blood Pressure 96 mmHg mmHg Diastolic Blood Pressure 50 mmHg mmHg 11/07/2024 18:21 EDT Systolic Blood Pressure 117 mmHg mmHg Diastolic Blood Pressure 65 mmHg mmHg 11/07/2024 18:20 EDT Heart Rate Monitored 68 bpm bpm Respiratory Rate 13 br/min br/min SpO2 98 % % 11/07/2024 18:18 EDT Systolic Blood Pressure 121 mmHg mmHg Diastolic Blood Pressure 65 mmHg mmHg 11/07/2024 18:15 EDT Temperature (Route Not Specified) 37 DegC DegC Heart Rate Monitored 51 bpm bpm Respiratory Rate 12 br/min br/min Systolic Blood Pressure 94 mmHg mmHg Diastolic Blood Pressure 52 mmHg mmHg SpO2 98 % % 11/07/2024 18:12 EDT Systolic Blood Pressure 86 mmHg mmHg Diastolic Blood Pressure 46 mmHg mmHg 11/07/2024 18:10 EDT Heart Rate Monitored 52 bpm bpm Respiratory Rate 13 br/min br/min SpO2 98 % % 11/07/2024 18:09 EDT Systolic Blood Pressure 91 mmHg mmHg Diastolic Blood Pressure 53 mmHg mmHg 11/07/2024 18:06 EDT Systolic Blood Pressure 89 mmHg mmHg Diastolic Blood Pressure 51 mmHg mmHg 11/07/2024 18:05 EDT Heart Rate Monitored 55 bpm bpm Respiratory Rate 11 br/min br/min Systolic Blood Pressure 94 mmHg mmHg Diastolic Blood Pressure 50 mmHg mmHg SpO2 98 % % 11/07/2024 18:04 EDT Systolic Blood Pressure 81 mmHg mmHg Diastolic Blood Pressure 44 mmHg mmHg 11/07/2024 18:01 EDT Systolic Blood Pressure 103 mmHg mmHg Diastolic Blood Pressure 54 mmHg mmHg 11/07/2024 18:00 EDT Temperature (Route Not Specified) 36.5 DegC DegC Heart Rate Monitored 62 bpm bpm Respiratory Rate 12 br/min br/min SpO2 98 % % 11/07/2024 17:57 EDT Systolic Blood Pressure 85 mmHg mmHg Diastolic Blood Pressure 49 mmHg mmHg 11/07/2024 17:56 EDT Systolic Blood Pressure 88 mmHg mmHg Diastolic Blood Pressure 50 mmHg mmHg 11/07/2024 17:55 EDT Heart Rate Monitored 49 bpm bpm Respiratory Rate 9 br/min br/min Systolic Blood Pressure 85 mmHg mmHg Diastolic Blood Pressure 48 mmHg mmHg SpO2 98 % % 11/07/2024 17:53 EDT Systolic Blood P (more content not included)... [facility] Patient Handouton 11-07-2024 Patient Handout Orthopedics ORIF Surgery for an Ankle Broken in Two Places (Bimalleolar Ankle Fracture): What to Know After After having a surgery called ORIF to treat a broken ankle, it's common to have some pain and swelling. You may also have a small amount of fluid coming from your cut for surgery. Follow these instructions at home: Medicines ? Take your medicines only as told. ? Take your antibiotics as told. Do not stop taking them even if you start to feel better. ? You may need to take steps to help treat or prevent trouble pooping (constipation), such as: ? Taking medicines to help you poop. ? Eating foods high in fiber, like beans, whole grains, and fresh fruits and vegetables. ? Drinking more fluids as told. ? Ask your health care provider if it's safe to drive or use machines while taking your medicine. If you have a splint or boot that can be taken off: ? Wear the splint or boot as told. Take it off only if your provider says you can. ? Check the skin around it every day. Tell your provider if you see problems. ? Loosen the splint or boot if your toes tingle, are numb, or turn cold and blue. ? Keep the splint or boot clean and dry. If you have a cast or splint that can't be taken off: ? Do not put pressure on any part of the cast or splint until it's hard. This may take a few hours. ? Do not stick anything inside it to scratch your skin. Doing this can lead to infection. ? Check the skin around your cast or splint every day. Tell your provider if you see problems. ? It's OK to put lotion on dry skin around the cast or splint. ? Keep the cast or splint clean and dry. Bathing ? Do not take baths, swim, or use a hot tub until you're told it's OK. Ask if you can shower. ? If your splint, boot, or cast isn't waterproof: ? Do not let it get wet. ? Cover it when you take a bath or a shower. Use a cover that doesn't let any water in. Caring for your cut from surgery ? Take care of your cut as told. Make sure you: ? Wash your hands with soap and water for at least 20 seconds before and after you change your bandage. If you can't use soap and water, use hand entomology professor. ? Change your bandage. ? Leave stitches or skin glue alone. ? Leave tape strips alone unless you're told to take them off. You may trim the edges of the tape strips if they curl up. ? Check the area around your cut every day for signs of infection. Check for: ? More redness, swelling, or pain. ? More fluid or blood. ? Warmth. ? Pus or a bad smell. Managing pain, stiffness, and swelling ? Use ice or an ice pack as told. ? If you have a splint or boot that you can take off, remove it only as told. ? Place a towel between your skin and the ice or between your cast and the ice. ? Leave the ice on for 20 minutes, 2?3 times a day. ? If your skin turns red, take off the ice right away to prevent skin damage. The risk of damage is higher if you can't feel pain, heat, or cold. ? Move your toes often to reduce stiffness and swelling. ? Raise your ankle above the level of your heart while you're sitting or lying down. Use pillows as needed. Activity ? Do not stand or walk on your injured ankle until you're told it's OK. Use crutches, a scooter, or a wheelchair. Only put as much weight on your foot as told. ? Ask when it's safe to drive if you have a splint, boot, or cast on your foot. ? Exercise as told. ? Rest as told. ? Get up to take short walks at least every 2 hours during the day. This helps you breathe better and keeps your blood flowing. Ask for help if you feel weak or unsteady. ? Ask what things are safe for you to do at home. Ask when you can go back to work or school. General instructions ? Do not smoke, vape, or use nicotine or tobacco. Contact a health care provider if: ? You have a fever. ? Your pain medicine isn't helping. ? You have any signs of infection near your cut. ? The edges of your cut come apart after the stitches or chidi are taken out. Get help right away if: ? You have chest pain. ? You have trouble breathing. ? Your foot or leg feels numb or tingles. ? Your foot is: ? Cold. ? Pale. ? Blue. ? You have calf swelling or tenderness. These symptoms may be an emergency. Call 911 right away. ? Do not wait to see if the symptoms will go away. ? Do not drive yourself to the hospital. This information is not intended to replace advice given to you by your health care provider. Make sure you discuss any questions you have with your health care provider. Document Revised: 11/28/2023 Document Reviewed: 11/28/2023 Elsevier Patient Education ? 2024 [employer] [facility] XR Ankle 2 Views Righton XR Ankle 2 Views Right EXAM: XR Ankle 2 Views Right 11/07/2024 HISTORY: ORIF RIGHT ANKLE OR #5 COMPARISON: 11/04/2024. TECHNIQUE: Intraoperative imaging, 5 images recorded, 2.2 mGy. FINDINGS: The medial malleolar fracture was stabilized by 2 screws and the fibular fracture was stabilized by a lateral positioned plate and 9 screws. The ankle mortise joint is maintained. IMPRESSION: ORIF of ankle fracture. Final Dictated by: Jet Haskins Dictated DT/TM: 11/12/24 9:59 Signed (Electronic Signature): Jet Haskins 11/12/24 11:57 a Technologist: Jane WILLIAM [facility] XR Fluoroscopy Up to 1 Houro n 11-07-2024 XR Fluoroscopy Up to 1 Hour EXAM: XR Ankle 2 Views Right 11/07/2024 HISTORY: ORIF RIGHT ANKLE OR #5 COMPARISON: 11/04/2024. TECHNIQUE: Intraoperative imaging, 5 images recorded, 2.2 mGy. FINDINGS: The medial malleolar fracture was stabilized by 2 screws and the fibular fracture was stabilized by a lateral positioned plate and 9 screws. The ankle mortise joint is maintained. IMPRESSION: ORIF of ankle fracture. Final Dictated by: Jet Haskins Dictated DT/TM: 11/12/24 9:59 Signed (Electronic Signature): Jet Haskins 11/12/24 11:57 a Technologist: Jane WILLIAM [facility] Provider Orderson 11-06-2024 Provider Orders [id number] [facility] XR Chest 2 Viewson XR Chest 2 Views EXAMINATION: XR Ches t 2 Views, 11/06/2024 3:28 PM EDT HISTORY: pre op COMPARISON: 10/11/2014 TECHNIQUE: PA and lateral views of the chest were obtained. FINDINGS: Medical devices: None. Cardiomediastinal silhouette is within normal limits. The lungs are clear. No pleural effusion or pneumothorax. No acute bony or soft tissue abnormalities. IMPRESSION: 1. No acute cardiopulmonary abnormality. Final Dictated by: Feliciano Menon MD Dictated DT/TM: 11/08/24 9:49 Signed (Electronic Signature): Feliciano Menon MD 11/08/24 9:50 am Technologist: Evelia HERNANDEZ [facility] .Auto Diff 1on 11-04-2024 Auto Cannon % 8 % Normal 1-12 [facility] Comment on above: Performed By: #### 1 [id number], [id number], [id number], [id number] ####[facility] (DEFAULT)[address] [place] [address] Baso Abs# 0.1 x10 Normal 0.0-0.2 [facility] Comment on above: Performed By: #### 1 [id number], [id number], 11733276, [id number] ####[facility] (DEFAULT)[address] [place] [address] Basophils/100 WBC (Bld) 0.4 % Normal 0.2-2.0 [facility] Comment on above: Performed By: #### 1 [id number], [id number], 52943608, 9116631 ####[facility] (DEFAULT)[address] [place] [address] Eos Abs# 0.1 x10 Normal 0.0-0.4 [facility] Comment on above: Performed By: #### 1 [id number], 7447159, 90210629, 4661817 ####[facility] (DEFAULT)[address] [place] [address] Eosinophils/100 WBC (Bld) 0.5 % Low 0.9-4.0 [facility] Comment on above: Performed By: #### 1 [id number], 4801446, 48446087, 8584485 ####[facility] (DEFAULT)[address] [place] [address] Lymph Abs# 2.0 x10 Normal 1.3-2.9 [facility] Comment on above: Performed By: #### 1 [id number], 6828361, 71635244, 4017583 ####[facility] (DEFAULT)[address] [place] [address] Lymphocytes/100 WBC (Bld) 17 % Normal 14-48 [facility] Comment on above: Performed By: #### 1 [id number], 3061734, 14488714, 9869839 ####[facility] (DEFAULT)[address] [place] [address] Cannon Abs# 1.0 x10 High 0.0-0.8 [facility] Comment on above: Performed By: #### 1 [id number], 1780086, 16357943, 0065773 ####[facility] (DEFAULT)[address] [place] [address] Neut Abs# 8.3 x10 Normal 1.5-9.2 [facility] Comment on above: Performed By: #### 1 [id number], 7778225, 23348315, 5419176 ####[facility] (DEFAULT)[address] [place] [address] Neutrophils/100 WBC (Bld) 73 % Normal 44-88 [facility] Comment on above: Performed By: #### 1 [id number], 7398363, 50118360, 7328045 ####[facility] (DEFAULT)[address] [place] [address] CBC w/ Auto Diffon 5 Erythrocyte distribution width (RBC) [Ratio] 13.4 % Normal 11.5-15.0 [facility] Comment on above: Performed By: #### 1 [id number], 2118278, 65607215, 1678432 ####[facility] (DEFAULT)[address] [place] [address] Hematocrit (Bld) [Volume fraction] 43.0 % Normal 34.8-51.9 [facility] Comment on above: Performed By: #### 1 [id number], 3839856, 86642494, 3348747 ####[facility] (DEFAULT)[address] [place] [address] Hemoglobin (Bld) [Mass/Vol] 14.7 g/dL Normal 11.8-17.7 [facility] Comment on above: Performed By: #### 1 [id number], 6451739, 15410758, 7668267 ####[facility] (DEFAULT)[address] [place] [address] Man Diff? Auto Invalid Interpretation Code [facility] Comment on above: Performed By: #### 1 [id number], 2489590, 39641922, 3193747 ####[facility] (DEFAULT)[address] [place] [address] 22847 MCH (RBC) [Entitic mass] 32 pg Normal 24-34 [facility] Comment on above: Performed By: #### 1 [id number], 9185111, 10139075, 0756261 ####[facility] (DEFAULT)[address] [place] [address] 76125 MCHC (RBC) [Mass/Vol] 34 g/dL Normal 26-37 [facility] Comment on above: Performed By: #### 1 [id number], 8712602, 38830270, 8583890 ####[facility] (DEFAULT)[address] [place] [address] 70188 MCV (RBC) [Entitic vol] 95 fL Normal 81-100 [facility] Comment on above: Performed By: #### 1 [id number], 3548987, 34302521, 0412180 ####[facility] (DEFAULT)[address] [place] [address] 87384 Platelet 242 x10 Normal 138-427 [facility] Comment on above: Performed By: #### 1 [id number], 0147390, 72834944, 2984339 ####[facility] (DEFAULT)[address] [place] [address] Platelet mean volume (Bld) [Entitic vol] 7.6 fL Normal 6.3-10.2 [facility] Comment on above: Performed By: #### 1 [id number], 8426772, 69484138, 5635241 ####[facility] (DEFAULT)[address] [place] [address] RBC 4.55 x10 Normal 3.70-5.30 [facility] Comment on above: Performed By: #### 1 [id number], 8685890, 43675944, 5080180 ####[facility] (DEFAULT)[address] [place] [address] WBC 11.4 x10 High 3.5-10.5 [facility] Comment on above: Performed By: #### 1 [id number], 2396129, 58352458, 8289751 ####[facility] (DEFAULT)[address] [place] [address] CMP Standardon 11-04-2024 eGFR Non AA >60 Invalid Interpretation Code [facility] Comment on above: Performed By: #### 1 [id number], 0928041, 51430845, 1339419 ####[facility] (DEFAULT)[address] [place] [address] eGFR AA >60 Invalid Interpretation Code [facility] Comment on above: Performed By: #### 1 [id number], 7358568, 87477346, 9400685 ####[facility] (DEFAULT)[address] [place] [address] Albumin [Mass/Vol] 4.0 g/dL Normal 3.5-5.0 [facility] Comment on above: Performed By: #### 1 [id number], 6216539, 44803521, 2045408 ####[facility] (DEFAULT)[address] [place] [address] Alk Phos 51 IU/L Normal 32-91 [facility] Comment on above: Performed By: #### 1 [id number], 2521979, 73690761, 8825987 ####[facility] (DEFAULT)[address] [place] [address] 12453 ALT [Catalytic activity/Vol] 24.0 U/L Normal 17.0-63.0 [facility] Comment on above: Performed By: #### 1 [id number], 1957693, 74135870, 2538977 ####[facility] (DEFAULT)[address] [place] [address] 06000 AST [Catalytic activity/Vol] 24 U/L Normal 15-41 [facility] Comment on above: Performed By: #### 1 [id number], 4138332, 10588328, 0068189 ####[facility] (DEFAULT)[address] [place] [address] 43525 Bili Total 0.7 mg/dL Normal 0.3-1.2 [facility] Comment on above: Performed By: #### 1 [id number], 5048609, 83187861, 9422477 ####[facility] (DEFAULT)[address] [place] [address] 87849 Calcium [Mass/Vol] 8.5 mg/dL Low 8.9-10.3 [facility] Comment on above: Performed By: #### 1 [id number], 7344994, 34580164, 8293314 ####[facility] (DEFAULT)[address] [place] [address] 16245 Chloride [Moles/Vol] 111 mmol/L Normal 101-111 [facility] Comment on above: Performed By: #### 1 [id number], 4939772, 57540127, 8717268 ####[facility] (DEFAULT)[address] [place] [address] 84408 CO2 [Moles/Vol] 24 mmol/L Normal 21-32 [facility] Comment on above: Performed By: #### 1 [id number], 6165203, 42579000, 9497024 ####[facility] (DEFAULT)[address] [place] [address] 94043 Creatinine [Mass/Vol] 0.90 mg/dL Normal 0.90-1.30 [facility] Comment on above: Performed By: #### 1 [id number], 3716928, 05351520, 4197240 ####[facility] (DEFAULT)[address] [place] [address] 62544 Glucose [Mass/Vol] 119.0 mg/dL High 74.0-118.0 [facility] Comment on above: Performed By: #### 1 197740404, 6525363, 48387880, 8680782 ####[facility] (DEFAULT)[address] [place] [address] 34999 Potassium [Moles/Vol] 4.0 mmol/L Normal 3.6-5.1 [facility] Comment on above: Performed By: #### 1 [id number], 6534501, 70615875, 9978918 ####[facility] (DEFAULT)[address] [place] [address] 82110 Protein [Mass/Vol] 6.6 g/dL Normal 6.5-8.1 [facility] Comment on above: Performed By: #### 1 [id number], 4982349, 63719731, 8938143 ####[facility] (DEFAULT)[address] [place] [address] 48363 Sodium [Moles/Vol] 136.0 mmol/L Normal 136.0-144.0 [facility] Comment on above: Performed By: #### 1 278446735, 8233492, 87649398, 9701472 ####[facility] (DEFAULT)[address] [place] [address] 84231 Urea nitrogen [Mass/Vol] 16 mg/dL Normal 8-26 [facility] Comment on above: Performed By: #### 1 [id number], 7235303, 96617617, 9930359 ####[facility] (DEFAULT)[address] [place] [address] 34937 Albumin/Globulin [Mass ratio] 1.5 {ratio} Normal 1.4-2.6 [facility] Comment on above: Performed By: #### 1 [id number], 8395670, 34136578, 8877598 ####[facility] (DEFAULT)[address] [place] [address] 95501 Anion gap [Moles/Vol] 5.0 mmol/L Normal 5.0-19.0 [facility] Comment on above: Performed By: #### 1 [id number], 9336570, 10821149, 4269233 ####[facility] (DEFAULT)[address] [place] [address] 80662 Globulin (S) [Mass/Vol] 2.6 g/dL Normal 1.5-4.3 [facility] Comment on above: Performed By: #### 1 [id number], 2992837, 80965817, 6367986 ####[facility] (DEFAULT)[address] [place] [address] 97191 Osmolality 274 mOsm/L Invalid Interpretation Code [facility] Comment on above: Performed By: #### 1 [id number], 9896960, 78586464, 1445077 ####[facility] (DEFAULT)[address] [place] [address] 59765 Urea nitrogen/Creatinine [Mass ratio] 17.7 mg/mg High 4.6-16.2 [facility] Comment on above: Performed By: #### 1 [id number], 1744176, 21907709, 6717341 ####[facility] (DEFAULT)[address] [place] [address] 95239 Extra Blueon 11-04-2024 Tube Collected Yes Invalid Interpretation Code [facility] Comment on above: Performed By: #### 1 [id number], [id number] ####[facility] (DEFAULT)[address] [place] [address] 25207 Magnesiumon 11-04-2024 Magnesium [Mass/Vol] 1.80 mg/dL Normal 1.80-2.50 [facility] Comment on above: Performed By: #### 1 [id number], 3603973, 65501266, 8706377 ####[facility] (DEFAULT)[address] [place] [address] 21667 XR Ankle Complete Righton XR Ankle Complete Right EXAM: XR Ankle Complete Right HISTORY: pain COMPARISON: None. TECHNIQUE: 3 views FINDINGS: There is an oblique fracture distal fibula transverse fracture of the medial malleolus. There is no significant displacement or dislocation. Mortise is intact. There is diffuse soft tissue swelling as well as an ankle joint effusion. There is a plantar calcaneal heel spur. IMPRESSION: Bimalleolar fracture right ankle Final Dictated by: Marielle Rodríguez MD Dictated DT/TM: 11/04/24 6:55 Signed (Electronic Signature): Marielle Rodríguez MD 11/04/24 6:56 pm Technologist: DAVID,[facility] XR Tibia/Fibula 2 Views Righ ton 11-04-2024 XR Tibia/Fibula 2 Views Right EXAM: XR Tibia/Fibula 2 Views Right HISTORY: pain COMPARISON: None. TECHNIQUE: AP and lateral views FINDINGS: There is a nondisplaced bimalleolar fracture right ankle. Mortise is intact. Remainder of tibia and fibula are intact. There is soft tissue swelling. IMPRESSION: Bimalleolar fracture right ankle. Final Dictated by: Marielle Rodríguez MD Dictated DT/TM: 11/04/24 6:57 Signed (Electronic Signature): Marielle Rodríguze MD 11/04/24 6:58 pm Technologist: DAVID,A [facility] CNOVon 02-12-2024 CNOV Office Visit (OTOLCR ) PRESLEY DE DIOS ([id number]) 1955 M Date Time Provider Department 02/12/24 9:00 AM CARLITOS HOLBROOK OTOLCR During your visit today, we recorded the following information about you: Carlitos Holbrook MD 02/12/2024 9:54 AM Signed [facility] - Return Visit Presley De Dios is a 68 year old male: Found to have right-sided mixed hearing loss concerning for otosclerosis. Subjective: No changes in hearing. Objective: AANDO Ears: Right ear - EAC clear, TM intact no effusion or retraction Left ear - EAC clear, TM intact no effusion or retraction Neuro - Cranial Nerves: Right CN 7 - HB 1 Left CN 7 - HB 1 Unlabored respirations, no audible respiratory sounds/stridor Skin well perfused Salient findings: Right-sided tympanic facial nerve is in contact with the stapes. There is no evidence of fenestral otosclerosis on either side. There is no evidence of bilateral semicircular canal dehiscence. Assessment: Right sided mixed hearing loss in setting of restricted hearing of the left ear Plan: I suspect that the conductive component of the hearing loss is due to impingement of the facial nerve on the stapes superstructure. I advised a trial of hearing aids. Surgery could be considered, but I discussed with him the increased risk of facial nerve paralysis with this type of procedure. Return to clinic in 1 year. Carlitos Holbrook III, MD Allergies As of Date: 02/12/2024 Noted Allergy Reaction PENICILLINS 07/12/2012 2 - Rash 16 - Unknown Date Reviewed: 02/12/2024 Reviewed by: Yoli Alvarez MA - Fully Assessed Reason for Visit: Follow Up [171] Cmt: For b/l hearing loss STEVEN 12/11/23. CT Scan done 12/22/23. Denies otalgia/otorrhea Primary Visit Diagnosis:Mixed conductive and sensorineural hearing loss of right ear with restricted hearing of left ear [H90.A31] Prescriptions as of 02/12/2024 - atorvastatin (LIPITOR) 40 mg tablet Take 1 tablet by mouth once daily. - celecoxib (CELEBREX) 200 mg capsule Take 1 capsule by mouth once daily. Problem List As Of Date 02/12/2024 Noted Resolved Melanoma in situ of lower leg (HCC) [D03.70] Mixed conductive and sensorineural hearing loss*09/27/2023 Sensorineural hearing loss (SNHL) of left ear w*09/27/2023 Disposition: Return in about 1 year (around 02/11/2025). Follow-up and Disposition History for Encounter Date Provider Department Center [id number]:Closed by CARLITOS HOLBROOK on 02/12/24 [address] [facility] [address] TEMP BONES WO IVCONon CT TEMP BONES WO IVCON * * *Final Report* * * DATE OF EXAM: Dec 22 2023 8:06AM [facility] 0512 - CT TEMP BONES WO IVCON / PROCEDURE REASON: Mixed conductive and sensorineural hearing loss of right ear with restricted hea * * * * Physician Interpretation * * * * RESULT: EXAMINATION: CT TEMP BONES WO IVCON CLINICAL HISTORY: Chronic, bilateral, mixed conductive and sensorineural hearing loss TECHNIQUE: Spiral 0.6 mm axial scans through the temporal bones without contrast in high resolution bony algorithm. Coronal planar reconstructions provided. MQ: CTTBWO_1 CT Radiation dose: Integrated Dose-Length Product (DLP) for this visit = 436 mGy*cm. CT Dose Reduction Employed: Automated exposure control (AEC) COMPARISON: None. RESULT: RIGHT: External Auditory Canal/Superficial Soft Tissues: EAC is patent. Overlying superficial soft tissues and the tissues of the visualized inferotemporal fossa are within normal limits. Mastoid Air Cells and Middle Ear Cavities: Mastoid air cells and middle ear cavities are clear. Ossicles: Ossicles are normally aligned and intact. Inner Ear Structures: Inner ear structures are within normal limits. No evidence of dysmorphism, bony destruction or dehiscence. Internal Auditory Canals: IAC is within normal limits of caliber and configuration. No clear evidence of an adjacent soft tissue mass. Skull Base: No evidence of bony destruction. The visualized brain parenchyma is within normal limits. LEFT: External Auditory Canal/Superficial Soft Tissues: EAC is patent. Overlying superficial soft tissues and the tissues of the visualized inferotemporal fossa are within normal limits. Mastoid Air Cells and Middle Ear Cavities: Mastoid air cells and middle ear cavities are clear. Ossicles: Ossicles are normally aligned and intact. Inner Ear Structures: Inner ear structures are within normal limits. No evidence of dysmorphism, bony destruction or dehiscence. Internal Auditory Canals: IAC is within normal limits of caliber and configuration. No clear evidence of an adjacent soft tissue mass. Skull Base: No evidence of bony destruction. Localizer images: No additional findings. IMPRESSION: Normal study Transcribe Date/Time: Dec 22 2023 9:09A Dictated by: AFSHAN DOUGHERTY MD This examination was interpreted and the report reviewed and electronically signed by: AFSHAN DOUGHERTY MD on Dec 22 2023 9:15AM EST Thank you for allowing us to participate in the care of your patient. Should there be any questions regarding this interpretation, please call [phone]. If you are unable to reach us at the number above, please feel free to contact [facility] at [phone]. [id number] Normal [facility] CT Temporal bone WO contrast on 12-22-2023 IMPRESSION: Normal study Transcribe Date/Time: Dec 22 2023 9:09A Dictated by: AFSHAN DOUGHERTY MD This examination was interpreted and the report reviewed and electronically signed by: AFSHAN DOUGHERTY MD on Dec 22 2023 9:15AM EST Thank you for allowing us to participate in the care of your patient. Should there be any questions regarding this interpretation, please call [phone]. If you are unable to reach us at the number above, please feel free to contact [facility] at [phone]. DIVISION OF RADIOLOGY * * *Final Report* * * DATE OF EXAM: Dec 22 2023 8:06AM [facility] 0512 - CT TEMP BONES WO IVCON / PROCEDURE REASON: Mixed conductive and sensorineural hearing loss of right ear with restricted hea * * * * Physician Interpretation * * * * RESULT: EXAMINATION: CT TEMP BONES WO IVCON CLINICAL HISTORY: Chronic, bilateral, mixed conductive and sensorineural hearing loss TECHNIQUE: Spiral 0.6 mm axial scans through the temporal bones without contrast in high resolution bony algorithm. Coronal planar reconstructions provided. MQ: CTTBWO_1 CT Radiation dose: Integrated Dose-Length Product (DLP) for this visit = 436 mGy*cm. CT Dose Reduction Employed: Automated exposure control (AEC) COMPARISON: None. RESULT: RIGHT: External Auditory Canal/Superficial Soft Tissues: EAC is patent. Overlying superficial soft tissues and the tissues of the visualized inferotemporal fossa are within normal limits. Mastoid Air Cells and Middle Ear Cavities: Mastoid air cells and middle ear cavities are clear. Ossicles: Ossicles are normally aligned and intact. Inner Ear Structures: Inner ear structures are within normal limits. No evidence of dysmorphism, bony destruction or dehiscence. Internal Auditory Canals: IAC is within normal limits of caliber and configuration. No clear evidence of an adjacent soft tissue mass. Skull Base: No evidence of bony destruction. The visualized brain parenchyma is within normal limits. LEFT: External Auditory Canal/Superficial Soft Tissues: EAC is patent. Overlying superficial soft tissues and the tissues of the visualized inferotemporal fossa are within normal limits. Mastoid Air Cells and Middle Ear Cavities: Mastoid air cells and middle ear cavities are clear. Ossicles: Ossicles are normally aligned and intact. Inner Ear Structures: Inner ear structures are within normal limits. No evidence of dysmorphism, bony destruction or dehiscence. Internal Auditory Canals: IAC is within normal limits of caliber and configuration. No clear evidence of an adjacent soft tissue mass. Skull Base: No evidence of bony destruction. Localizer images: No additional findings. DIVISION OF RADIOLOGY Provider, [facility] - 12/22/2023 * * *Final Report* * * DATE OF EXAM: Dec 22 2023 8:06AM [facility] 0512 - CT TEMP BONES WO IVCON / PROCEDURE REASON: Mixed conductive and sensorineural hearing loss of right ear with restricted hea * * * * Physician Interpretation * * * * RESULT: EXAMINATION: CT TEMP BONES WO IVCON CLINICAL HISTORY: Chronic, bilateral, mixed conductive and sensorineural hearing loss TECHNIQUE: Spiral 0.6 mm axial scans through the temporal bones without contrast in high resolution bony algorithm. Coronal planar reconstructions provided. MQ: [id number] CT Radiation dose: Integrated Dose-Length Product (DLP) for this visit = 436 mGy*cm. CT Dose Reduction Employed: Automated exposure control (AEC) COMPARISON: None. RESULT: RIGHT: External Auditory Canal/Superficial Soft Tissues: EAC is patent. Overlying superficial soft tissues and the tissues of the visualized inferotemporal fossa are within normal limits. Mastoid Air Cells and Middle Ear Cavities: Mastoid air cells and middle ear cavities are clear. Ossicles: Ossicles are normally aligned and intact. Inner Ear Structures: Inner ear structures are within normal limits. No evidence of dysmorphism, bony destruction or dehiscence. Internal Auditory Canals: IAC is within normal limits of caliber and configuration. No clear evidence of an adjacent soft tissue mass. Skull Base: No evidence of bony destruction. The visualized brain parenchyma is within normal limits. LEFT: External Auditory Canal/Superficial Soft Tissues: EAC is patent. Overlying superficial soft tissues and the tissues of the visualized inferotemporal fossa are within normal limits. Mastoid Air Cells and Middle Ear Cavities: Mastoid air cells and middle ear cavities are clear. Ossicles: Ossicles are normally aligned and intact. Inner Ear Structures: Inner ear structures are within normal limits. No evidence of dysmorphism, bony destruction or dehiscence. Internal Auditory Canals: IAC is within normal limits of caliber and configuration. No clear evidence of an adjacent soft tissue mass. Skull Base: No evidence of bony destruction. Localizer images: No additional findings. IMPRESSION IMPRESSION: Normal study Transcribe Date/Time: Dec 22 2023 9:09A Dictated by: AFSHAN DOUGHERTY MD This examination was interpreted and the report reviewed and electronically signed by: AFSHAN DOUGHERTY MD on Dec 22 2023 9:15AM EST Thank you for allowing us to participate in the care of your patient. Should there be any questions regarding this interpretation, please call [phone]. If you are unable to reach us at the number above, please feel free to contact [facility] eRadiology at [phone]. [facility] Radiology Study observation (narrative) [facility] CT Temporal bone WO contrast Ordered By: Ccf Provider on 12-22-2023 [facility] CNOVon 12-11-2023 CNOV Office Visit (OTOLCR ) PRESLEY DE DIOS ([id number]) 1955 M Date Time Provider Department 12/11/23 9:15 AM CARLITOS HOLBROOK OTOLCR During your visit today, we recorded the following information about you: Carlitos Holbrook MD 12/11/2023 10:15 AM Signed SECTION OF OTOLOGY, NEUROTOLOGY AND LATERAL SKULL BASE SURGERY Head and Neck [place], [facility] Chief Complaint: Hearing loss HPI: Presley De Dios is a 68 year old male who reports a longstanding history of bilateral R > L hearing loss (at least 40 years according to patient). He feels over the last few years his hearing has declined to the point where he has difficulty understanding some conversations. 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 He does not report any otalgia, otorrhea, tinnitus, aural pressure, vertigo, or prior head and neck surgery/radiation. Hearing loss: See HPI Drainage: No Tinnitus: Some low level constant ringing, R > L Aural fullness: No Otalgia: No Vertigo: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 Daysi Arvizu Plan of Treatment Date Care Activity Detail Author Start: 2029 RSV Vaccine (1 - 1-dose 75+ series) RSV Vaccine (1 - 1-dose 75+ series) [facility] Start: 04-18-2025 Screening for malignant neoplasm of colon [facility] Start: 02-24-2025 End: 02-24-2025 Patient encounter procedure 02/24/2025 9:00 AM EDT Office Visit Otolaryngology [address] [place] [address] [address] [id number] [place] [address] [place], [place] [id number] 1 year follow up Otolaryngology Comment on above: 1 year follow up Start: 01-01-2025 End: 01-01-2025 Patient encounter procedure 01/01/2025 10:15 AM EDT Office Visit [facility] [address] [place] [phone] Qasim Yoon, DO [address] [place] [address] [facility] Start: 12-30-2024 Influenza vaccination Influenza Vacc ine (#1) [facility] Start: 12-04-2024 End: 12-04-2024 Patient encounter procedure 12/04/2024 10:15 AM EDT Office Visit [facility] [address] [place] [phone] Qasim Yoon, DO [address] [place] [address] [facility] Start: 11-20-2024 End: 11-20-2024 Patient encounter procedure 11/20/2024 11:15 AM EDT Office Visit [facility] [address] [place] [address] Qasim Yoon, DO [address] [place] [address] [facility] Start: 11-06-2024 End: 11-06-2025 ECG 12 lead ECG 12 lead ECG Routine Pre-op testing Expected: 11/06/2024 (Approximate), Expires: 11/06/2025 [facility] Work Phone: Comment on above: Expected: 11/06/2024 (Approximate), Expires: 11/06/2025 Start: 11-06-2024 End: 11-06-2025 XR Chest 2 Views XR chest 2 views Imaging Routine Pre-op testing Expected: 11/06/2024, Expires: 11/06/2025 [facility] Comment on above: Expected: 11/06/2024 , Expires: 11/06/2025 Start: 11-06-2024 End: 11-06-2024 Patient encounter procedure 11/06/2024 12:00 PM EDT [facility] [address] [place] [phone] Qasim Yoon, DO [address] [address] Arrived [facility] Comment on above: Arrived Start: 02-12-2024 End: 02-12-2024 Patient encounter procedure 02/12/2024 9:00 AM EDT Office Visit Otolaryngology [address] [phone] Carlitos Holbrook MD [address] [place] [id number] Follow up Otolaryngology Comment on above: Follow up Start: 12-31-2023 Covid-19 Vaccine ( season) Covid-19 Vaccine ( season) [facility] Start: 12-31-2023 Influenza vaccination C [facility] Start: 12-22-2023 End: 12-22-2023 Patient encounter procedure 12/22/2023 8:00 AM EDT Appointment Radiology [address] [place] [address] Mixed conductive and sensorineural hearing loss of right ear with restricted hearing of left ear [H90.A31] Radiology Comment on above: Mixed conductive and sensorineural hearing loss of right ear with restricted hearing of left ear [H90.A31] Start: 11-13-2023 End: 11-13-2023 Patient encounter procedure 11/13/2023 10:30 AM EDT Office Visit Otolaryngology [address] [facility] [address] [place] [address] Carlitos Holbrook MD [address] [place], [place] [phone] Hearing loss, referred by Dr. Richey Otolaryngology Comment on above: Hearing loss, referr ed by Dr. Richey Start: 08-23-2023 Patient referral [facility] Work Phone: Start: 05-01-2023 Advance Directive Discussion Advance Directive Discussion [facility] Start: 05-01-2023 Behavioral Health Screening Behavioral Health Screening [facility] Start: 12-30-2022 Covid-19 Vaccine ( season) Covid-19 Vaccine ( season) [facility] Start: 08-23-2019 Pneumococcal Vaccine : 65+ (1 of 1 - PCV) Pneumococcal Vaccine: 65+ (1 of 1 - PCV) [facility] Start: 06-05-2016 Pneumococcal Vaccine : 65+ Years (2 of 2 - PCV) Pneumococcal Vaccine: 65+ Years (2 of 2 - PCV) [facility] Start: 2014 RSV Vaccine (1 - 1-dose 60+ series) RSV Vaccine (1 - 1-dose 60+ series) [facility] Start: 2004 Shingrix Vaccine (1 of 2) Shingrix Vaccine (1 of 2) [facility] Start: 08-23-1999 Diabetes Screening Diabetes Screenin g [facility] Start: 08-23-1999 Screening for malignant neoplasm of colon [facility] Start: 1989 Lipid panel Lipid Screening [facility] Start: 1973 Urine microalbumin profile DTaP,Tdap,Td Vaccine (1 - Tdap) [facility] Start: 1972 Anxiety Screening Anxiety Screening [facility] Start: 1972 Depression Screening Depression Scre [place] [facility] Start: 1972 Hepatitis C screening Hepatitis C Sc madelyn [facility] Start: 1954 Abdominal aortic aneurysm screening Abdominal Aortic Aneurysm Screening [facility] Start: 1954 Screening for malignant neoplasm of colon [facility] End: 01-09-2025 CT Temporal bone WO contrast CT TEMP BONES WO IVCON Radiology Routine Mixed conductive and sensorineural hearing loss of right ear with restricted hearing of left ear 1 Occurrences starting 12/11/2023 until 01/09/2025 [facility] Work Phone: Comment on above: 1 Occurrences starti ng 12/11/2023 until 01/09/2025 Hearing aid examination & selection binaural HEARING AID [place]-BINAURAL Procedures Routine Mixed conductive and sensorineural hearing loss of right ear with restricted hearing of left ear Sensorineural hearing loss (SNHL) of left ear with restricted hearing of right ear Ordered: 12/11/2023 [facility] Comment on above: Ordered: 12/11/2023 Patient referral [facility] Work Phone: XR Ankle - right 3 Views XR ankle 3+ views right Imaging Routine Closed bimalleolar fracture of right ankle, sequela 01/01/2025 10:05 AM EDT [facility] Work Phone: [facility] Immunizations Immunization Date Immunization Notes Care Provider Annemarie mauricio 06-05-2015 influenza virus vaccine, unspecified formulation Qasim Yoon DO Work Phone: [facility] 02-20-2015 influenza virus vaccine, unspecified formulation [facility] Payers Date Payer Category Payer Medicare (Managed Care) [employer] [id number] 2024 Private Health Insurance [id number] 2023 Medicare [id number] 1959 Medicare [id number] 1959 Medicare [id number] 1954 Unknown [id number] .593 1954 Unknown [id number] [id number] .593 1954 Unknown [id number] [id number] .718 1954 Unknown [id number] [id number] .718 1954 Unknown [id number] [id number] .718 1954 Unknown [id number] [id number] .1259 1954 Unknown [id number] [id number] .1259 1954 Unknown [id number] [id number] .1259 1954 Unknown [id number] [id number] .1259 1954 Unknown [id number] [id number] .1259 1954 Unknown [id number] [id number] .1259 1954 Unknown [id number] [id number] .1259 1954 Unknown [id number] .1259 Social History Date Type Detail Facility Start: 08-23-2023 End: 02-12-2024 Tobacco smoking status NHIS Ex-smoker (finding) [facility] Start: 1955 Sex Assigned At Male F [facility] Start: 05-01-1972 End: 05-01-2007 History of tobacco use Current smoker [facility] Start: 05-01-1972 End: 05-01-2007 History of tobacco use Cigarette Smoker [facility] Start: 07-12-2012 End: 01-01-2025 Cigarettes smoked current (pack per day) - Reported 1 [facility] Start: 07-12-2012 End: 02-12-2024 Tobacco use and exposure User of smokeless tobacco [facility] Start: 07-12-2012 End: 01-01-2025 Alcohol intake Current drinker of alcohol (finding) [facility] Start: 04-29-2017 End: 01-01-2025 Tobacco use panel [facility] National Score (1-10 0), lower number is lower risk 78 [facility] Start: 1955 Sex Assigned At Not on file [facility] smoking consumption unknown [facility] Start: 05-01-2023 [facility] tobacco daily [facility] Start: 05-01-2023 History of tobacco use Cigar Smoker [facility] Start: 11-06-2024 Tobacco use and exposure Smokeless tobacco non-user [facility] Clinical Notes 09-26-2023 to 01-01-2025 Kristan Lopez - 01/01/2025 10:15 AM Karolina Yoon DO - 11/20/2024 11:15 AM Akbar Head MA - 11/06/2024 12:00 PM Cassi Lopez - 11/06/2024 12:00 PM EDTPatient Instructions Note Date & Type Note Facility 01-01-2025 History of Present illness Narrative Images from the original note were not included. Presley De Dios is a 69 y.o. male presents with chief complaint of FX < 90 days follow up right ankle open reduction and internal fixation. HPI: Presley is here for his right ankle dated 11-07-2024. He is doing well. He does use a crutch on long distance or on stairs. Spouse is present. He did have a couple suture reactions where it was trying to spit out his vicryl. This has been stabilized. He has been mowing the [employer] as well as his yard. No weed-wacking. No recent fall or trauma reported. Swelling and pain are well controlled. SUBJECTIVE: MEDICATIONS: No current outpatient medications ALLERGIES: Allergies Allergen Reactions Penicillins Rash Other Reaction(s): Rash, Fever, Unknown SURGICAL HISTORY: Past Surgical History: Procedure Laterality Date ANKLE FRACTURE SURGERY Right 11/07/2024 ORIF w/MTP HERNIA REPAIR 2015 KNEE SURGERY Right 2009 w/Dr. Kelly KNEE SURGERY Left 2013 ORIF ANKLE FRACTURE Right 11/07/2024 R ankle ORIF-MTP FAMILY HISTORY: Family History Problem Relation Name Age of Onset Heart disease Father SOCIAL HISTORY: Social History Tobacco Use Smoking status: Every Day Types: Cigars Start date: 2023 Smokeless tobacco: Never Substance Use Topics Alcohol use: Yes Drug use: Never Depression: Not on file REVIEW OF SYMPTOMS: The review of systems, history and current medications list are all reviewed today. OBJECTIVE: Visit Vitals Ht 5' 10.5 Wt 180 lb BMI 25.46 kg/m Smoking Status Every Day BSA 2.01 m Physical Exam On physical exam, the medial and lateral incisions are clean, dry and intact. There is mild swelling as expected. There is a small scab on the left distal medial incision from the screws from the suture. There is a small piece of dry suture in mid lateral incision as well. There is no active infection or drainage. He has a stable arc of motion with just mild stiffness with dorsiflexion. Plantar flexion is full. He is able to single stance phase with stable arch and minimal discomfort. X-rays and imaging permanently saved to the patient's record were reviewed today, three views, shows anatomic alignment of the mortise. The bimalleolar fracture has progressive healing in good position and alignment. There is no sign of subluxation or dislocation or instability pattern. ASSESSMENT AND PLAN: Assessment/Plan Status post right ankle open reduction and internal fixation. The nature of the findings were discussed at length. Massage, exercises were reviewed. He will continue with good shoe wear. Fall precautions. Stretches were discussed. Physical therapy if having recalcitrant issues. He is aware this will improve out to 9-12 months. He will wean off the crutches and progress with activities as tolerated. Spouse is present. He is discharged in stable condition. Follow up p.r.n.. Cosigned by Qasim Yoon DO at 01/06/2025 5:12 PM EDT documented in this encounter [facility] 11-20-2024 History of Present illness Narrative S/P right ankle ORIF bimalleolar ankle [id number] visit post surgery [facility]. Patient is seen in follow up for their ankle ORIF surgery. Did well with anesthesia. Pain is controlled. Using pharmacologic DVTp. Stable with assistive device. Denies CP or SOB. PE: Patient seen and examined. Swelling mild to moderate. Compartments supple. Moderate stiffness. Incision CDI. Calves supple, no sign of DVT. Incisions CDI. [place] removed, steristrips applied. Xray: Stephanie palacio, Three view, AP, lateral and mortise oblique, save today to the [place] permanent record shows stable right ankle mortise. Hardware is intact in good position and alignment, medial and lateral. Films were reviewed with patient at length. Impression: S/P right ankle ORIF (bimalleolar)-1st post-operative visit Treatment Plan: The nature of the findings were discussed at length. Continue [id number]. Ice and elevation techniques reviewed. [id number] boot provided, removing for dinner, TV and hygiene. Posterior splint in bed at night. Continue DVT pharmacologic agent until a month post surgery. F/U in 2-3 weeks for repeat xray and exam. Will consider transition of WB status, boot and therapy at that time. All questions answered. documented in this encounter [facility] 11-12-2024 Note [id number] 11-11-2024 Note DATE OF PROCEDURE: SURGEON: Qasim Yoon DO ANESTHESIA: Sherif Mccarty MD (General) PREOPERATIVE DIAGNOSIS: Right closed displaced bi-malleolar ankle fracture dislocation. POSTOPERATIVE DIAGNOSIS: Right closed displaced bi-malleolar ankle fracture dislocation. PROCEDURE: Right ankle ORIF with medial and lateral components, C-arm fluoroscopy and short posterior leg splint application. ESTIMATED BLOOD LOSS: Zero. SPECIMEN: None. IMPLANTS: Arthrex Stainless Steel ankle tray with a short periarticular contoured lateral plate, four proximal 3.5 cortical screws, multiple distal locking screws of 2.7 mm. The medial side had two 4.0 cannulated screws of 50 and 45 mm, respectively . COMPLICATIONS: None. TOURNIQUET TIME: 40 minutes at 300 mmHg. 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 He had Crocks on and he slipped on his wet garage floor twisting his ankle. He had pain and deformity. He came to the emergency department and call coverage name was provided for follow up in the office. There was no phone conversation or referral from the emergency department. I attempted to try to get him another orthopedic surgeon from some proper work but could not. He was seen and evaluated yesterday in the office with a displaced bi-malleolar fracture with ankle mortise disruption. The syndesmosis was intact. The posterior lip was intact. This is a transverse medial malleolar fracture with a Miller B fibular fracture. The pros, cons, risks, benefits and expectations were discussed. The consent form was signed and charted. The site was marked preoperatively. All questions were properly answered with the patient and his spouse. Clindamycin 900 mg IV was given preoperatively. The swelling has reduced from yesterday and it is at an acceptable level for surgical intervention. PROCEDURE & DETAIL: Presley was taken to the operative suite and placed in the supine position. Anesthesia was provided. A well-padded tourniquet was placed in the right upper thigh. A bump was placed in the gluteal area. The right leg was prepped and drape in its entirety with ChloraPrep. Once a time-out was done and the procedure was confirmed which consisted of the consent form and history and physical, preoperative marked site and landmarks were identified; the large C-arm with fluoroscopy with the fiber optic technician was utilized. Landmarks were marked. A lateral incision was made of approximately 3.5 inches. The hematoma was evacuated. The fracture was irrigated, curetted, reduced and a reduction clamp out the length. A short periarticular lateral stainless Arthrex plate was appropriately positioned. Multiple cortical screws of 3.5 were placed in the fibular shaft. Distal locking screws were placed for anatomic reduction of the fracture. The peroneal tendons were intact without translocation. The syndesmosis was intact to Cotton's testing under fluoroscopy. The medial incision was approximately 1.5 inches. The medial malleolus was at the level of the plafond. There was an old injury ossicle off the tip. Once the fracture was irrigated and reduced anatomically with a reduction towel clip, the treaded K-wires were appropriately positioned reducing the fracture, measured, drilled and a 50 mm and 45 mm were placed anterior respectively in the medial malleolus with anatomical reduction to the mortise. The talus was appropriately positioned. Final pictures were taken throughout the ankle and saved to the permanent record. The scope was irrigated out. The subcutaneous tissues were closed with a 2-0 Vicryl suture. Chidi were applied. Then 10 cc of 0.5% Marcaine was injected on the medial and lateral sides with a total of 20 cc. Bacitracin, Adaptic and soft dressing were applied. A short neutral based 4 inch x 30 inch Ortho-Glass splint was provided. The tourniquet was deflated. Presley was awakened from anesthesia and transferred to the recovery room in stable and satisfactory condition. The case was clean and elective. Sponge and needle counts were correct. Specimen was done. CONDITION OF THE PATIENT: Satisfactory. Qasim Yoon D.O. JOB #: [id number] [facility] 11-07-2024 Note Education Materials Orthopedics ORIF Surgery for an Ankle Broken in Two Places (Bimalleolar Ankle Fracture): What to Know After After having a surgery called ORIF to treat a broken ankle, it's common to have some pain and swelling. You may also have a small amount of fluid coming from your cut for surgery. Follow these instructions at home: Medicines ? Take your medicines only as told. ? Take your antibiotics as told. Do not stop taking them even if you start to feel better. ? You may need to take steps to help treat or prevent trouble pooping (constipation), such as: ? Taking medicines to help you poop. ? Eating foods high in fiber, like beans, whole grains, and fresh fruits and vegetables. ? Drinking more fluids as told. ? Ask your health care provider if it's safe to drive or use machines while taking your medicine. If you have a splint or boot that can be taken off: ? Wear the splint or boot as told. Take it off only if your provider says you can. ? Check the skin around it every day. Tell your provider if you see problems. ? Loosen the splint or boot if your toes tingle, are numb, or turn cold and blue. ? Keep the splint or boot clean and dry. If you have a cast or splint that can't be taken off: ? Do not put pressure on any part of the cast or splint until it's hard. This may take a few hours. ? Do not stick anything inside it to scratch your skin. Doing this can lead to infection. ? Check the skin around your cast or splint every day. Tell your provider if you see problems. ? It's OK to put lotion on dry skin around the cast or splint. ? Keep the cast or splint clean and dry. Bathing ? Do not take baths, swim, or use a hot tub until you're told it's OK. Ask if you can shower. ? If your splint, boot, or cast isn't waterproof: ? Do not let it get wet. ? Cover it when you take a bath or a shower. Use a cover that doesn't let any water in. Caring for your cut from surgery ? Take care of your cut as told. Make sure you: ? Wash your hands with soap and water for at least 20 seconds before and after you change your bandage. If you can't use soap and water, use hand entomology professor. ? Change your bandage. ? Leave stitches or skin glue alone. ? Leave tape strips alone unless you're told to take them off. You may trim the edges of the tape strips if they curl up. ? Check the area around your cut every day for signs of infection. Check for: ? More redness, swelling, or pain. ? More fluid or blood. ? Warmth. ? Pus or a bad smell. Managing pain, stiffness, and swelling ? Use ice or an ice pack as told. ? If you have a splint or boot that you can take off, remove it only as told. ? Place a towel between your skin and the ice or between your cast and the ice. ? Leave the ice on for 20 minutes, 2?3 times a day. ? If your skin turns red, take off the ice right away to prevent skin damage. The risk of damage is higher if you can't feel pain, heat, or cold. ? Move your toes often to reduce stiffness and swelling. ? Raise your ankle above the level of your heart while you're sitting or lying down. Use pillows as needed. Activity ? Do not stand or walk on your injured ankle until you're told it's OK. Use crutches, a scooter, or a wheelchair. Only put as much weight on your foot as told. ? Ask when it's safe to drive if you have a splint, boot, or cast on your foot. ? Exercise as told. ? Rest as told. ? Get up to take short walks at least every 2 hours during the day. This helps you breathe better and keeps your blood flowing. Ask for help if you feel weak or unsteady. ? Ask what things are safe for you to do at home. Ask when you can go back to work or school. General instructions ? Do not smoke, vape, or use nicotine or tobacco. Contact a health care provider if: ? You have a fever. ? Your pain medicine isn't helping. ? You have any signs of infection near your cut. ? The edges of your cut come apart after the stitches or chidi are taken out. Get help right away if: ? You have chest pain. ? You have trouble breathing. ? Your foot or leg feels numb or tingles. ? Your foot is: ? Cold. ? Pale. ? Blue. ? You have calf swelling or tenderness. These symptoms may be an emergency. Call 911 right away. ? Do not wait to see if the symptoms will go away. ? Do not drive yourself to the hospital. This information is not intended to replace advice given to you by your health care provider. Make sure you discuss any questions you have with your health care provider. Document Revised: 11/28/2023 Document Reviewed: 11/28/2023 Elsevier Patient Education ? 2024 [employer]. [facility] 11-07-2024 Note [facility] Clinical Discharge Summary PERSON INFORMATION Name PRESLEY DE DIOS Age 69 Years 1955 Sex MALE Language Trinidadian PCP Provider, None Marital Status Phone Med Service Ambulatory Surgery Acct# Arrival 11/07/2024 14:36:41 Visit Reason SURGERY- ORIF RIGHT ANKLE Acuity LOS 000 01:27 Address: [address] [place] [address] Comment: PROVIDER INFORMATION VITALS INFORMATION Vital Sign Triage Latest Temp Oral 36.5 DegC 36.5 DegC Temp Temporal 36.5 DegC 36.1 DegC Temp Intravascular Temp Axillary Temp Rectal 02 Sat 100 % 96 % Respiratory Rate 16 br/min 15 br/min Peripheral Pulse Rate Apical Heart Rate Blood Pressure 132 mmHg / 74 mmHg 122 mmHg / 66 mmHg Comment: MEDICAL INFORMATION Allergy Info: penicillin Medication List: New Medications Other Medications acetaminophen-hydrocodone (Jackson 5 mg-325 mg oral tablet) 2 tab(s) Oral (given by mouth) every 4 hours. as needed as needed for pain. Refills: 0. aspirin (aspirin 325 mg oral delayed release tablet) 1 tab(s) Oral (given by mouth) every day. Start the day after surgery. Refills: 0. Medications to Continue That Have Not Changed Other Medications ibuprofen (ibuprofen 600 mg oral tablet) 1 tab(s) Oral (given by mouth) every 6 hours.. Comment: Lab and Radiology Results Laboratory or Other Results This Visit (last charted value for your 11/07/2024 visit) No Laboratory or Other Results This Visit DIET & ACTIVITY Patient Activity Level: Non weight bearing Patient Diet: Regular Patient Activity Restrictions: Discontinue Alcohol Use, No driving, No heavy lifting, No Sexual Activity DISCHARGE INFORMATION Discharge Disposition: Discharge Location: DEPART REASON INCOMPLETE INFORMATION PATIENT EDUCATION INFORMATION Instructions: ORIF Surgery for an Ankle Broken in Two Places (Bimalleolar Ankle Fracture): What to Know After Follow up: With: Address: When: QASIM YOON [address] [address] [employer] (1) Comments: Follow up Stephanie SETHI's building per card With: Address: When: None Provider [address] [place] [address] DIAGNOSIS Closed bimalleolar avulsion fracture of right ankle Comment: PHYS DOC NOTES [facility] 11-06-2024 History of Present illness Narrative MEDICATIONS: Current Outpatient Medications Medication Instructions aspirin 325 mg, Oral, Daily HYDROcodone-acetaminophen (Jackson) 5-325 MG tablet 1-2 tablets, Oral, Every 4 hours PRN ALLERGIES: Allergies Allergen Reactions Penicillins Rash Other Reaction(s): Rash, Fever, Unknown MEDICAL HISTORY: Past Medical History: Diagnosis Date Cancer (HCC) SURGICAL HISTORY: Past Surgical History: Procedure Laterality Date HERNIA REPAIR 2015 KNEE SURGERY Right 2009 w/Dr. Kelly KNEE SURGERY Left 2012 FAMILY HISTORY: Family History Problem Relation Name Age of Onset Heart disease Father SOCIAL HISTORY: Social History Tobacco Use Smoking status: Every Day Types: Cigars Start date: 2023 Smokeless tobacco: Never Substance Use Topics Alcohol use: Yes Drug use: Never Depression: Not on file VITALS: Visit Vitals Ht 5' 10.5 Wt 180 lb BMI 25.46 kg/m Smoking Status Every Day BSA 2.01 m Images from the original note were not included. GENERAL HISTORY AND PHYSICAL: NAME: Presley De Dios : 1955 CHIEF COMPLAINT: Right ankle pain and swelling. HISTORY OF PRESENT ILLNESS: Presley is here of which he was cleaning off his zero turn mower. He was wearing Croc shoes when the floor of his garage was wet. He slipped, twisting his ankle Monday. He had pain, deformity, swelling. He got to the Emergency Room at [facility], call coverage was provided through the local staff. He subsequently seen Dr. Kelly in the past. He tried to call him which subsequently could not get in. He called us yesterday and an appointment was accommodated today. He does have a displaced bimalleolar fracture with ankle mortise disruption. It is a closed injury. There is no phone conversation or referral from [facility] itself. He denies any significant numbness or tingling. His pain is controlled. He denies any significant past medical history other than remote history of cancer. 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 He does have help with that. No history of anesthesia complications, no history of deep venous thrombosis or pulmonary embolism. Spouse is present and supportive. PAST MEDICAL HISTORY: Past Medical History: Diagnosis Date Cancer (HCC) PAST SURGICAL HISTORY: Past Surgical History: Procedure Laterality Date HERNIA REPAIR 2015 KNEE SURGERY Right 2009 w/Dr. Kelly KNEE SURGERY Left 2012 SOCIAL HISTORY: Social History Occupational History Not on file Tobacco Use Smoking status: Every Day Types: Cigars Start date: 2023 Smokeless tobacco: Never Substance and Sexual Activity Alcohol use: Yes Drug use: Never Sexual activity: Defer ALLERGIES: Allergies Allergen Reactions Penicillins Rash Other Reaction(s): Rash, Fever, Unknown MEDICATIONS: Current Outpatient Medications Medication Instructions aspirin 325 mg, Oral, Daily HYDROcodone-acetaminophen (Jackson) 5-325 MG tablet 1-2 tablets, Oral, Every 4 hours PRN REVIEW OF SYSTEMS: The review of systems, history and current medications list are all reviewed today. Vitals: Visit Vitals Ht 5' 10.5 Wt 180 lb BMI 25.46 kg/m Smoking Status Every Day BSA 2.01 m PHYSICAL EXAM: On physical exam, he is alert and oriented. Vital signs are stable. The sugar tong and posterior splint is removed to the right ankle. The ankle has mild to moderate swelling. It is a closed injury. The mortise is disrupted. There is significant tenderness to the lateral malleolus and medial malleolus with step off. The patient is neurovascularly intact distally. There are supple compartments. It is a closed injury without blistering or skin breakdown. X-rays, permanently saved to the patient's record, are reviewed from [facility] taken a couple of days ago from their permanent system shows Miller B fibula fracture with mild to moderate displacement with valgus positioning. There is a transverse medial malleolar fracture at the level of the joint with displacement. The mortise is disrupted approximately 1/4 in a lateral direction. The posterior malleolus is intact. Syndesmosis is intact. Surgical History and Physical: GENERAL AND PSYCHOLOGICAL: The patient is alert and oriented for age. HEAD AND E.E.N.T.: The skull is normocephalic. There is no mass or sign of trauma. NECK: The neck is supple. There is good range of motion. There is no mass or adenopathy appreciated. The thyroid is not enlarged. CARDIAC: The heart is regular. There is no murmur or ectopy appreciated. LUNGS: Inspiratory and expiratory excursions are symmetrical. The lung serra are clear in all quadrants. ABDOMEN: The texture is soft. Bowel sounds are heard well in all quadrants. There is no tenderness to palpation. There is no organomegaly appreciated. OSTEOPATHIC AND STRUCTURAL: There is no gross evidence of kyphosis, lordosis, scoliosis, or apparent leg length discrepancy, with no acute tissue texture changes in sitting or standing positions. ASSESSMENT: Right ankle bimalleolar fracture, dislocation. PLAN: The nature of the findings were discussed at length. Splint was reapplied. He will on ice and elevation. 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 He has done well with anesthesia in the past. He had some labs in the Emergency Room that are stable. We will order an EKG and chest x-ray. NPO status was reviewed. He is tentatively scheduled at [facility] tomorrow at 5 p.m. as an outpatient surgery. Severino was sent for postoperative pain. Aspirin 325 once a day for three weeks postoperative for DVT prevention. We discussed non weight bearing for four weeks with boot application for additional four weeks with approximately eight weeks until he is in a regular shoe. We discussed chronic swelling, pain and irritability. Consent forms are signed and witnessed for [facility]. He is discharged in stable condition. Spouse is present. Numerous questions were answered. Qasim Yoon D.O. Cosigned by Qasim Yoon DO at 11/07/2024 9:50 AM EDT documented in this encounter [facility] 11-04-2024 Note Education Materials Orthopedics Cast or Splint Care, Adult Casts and splints are supports that are worn to protect broken bones and other injuries. A cast or splint may hold a bone still and in the correct position while it heals. Casts and splints may also help with pain, swelling, and muscle spasms. A cast is a hardened support that is usually made of fiberglass or plaster. It is custom-fit to the body and offers more protection than a splint. Most casts cannot be taken off and put back on. A splint is a type of soft support that is usually made from cloth and elastic. It can be adjusted or taken off as needed. Often, splints are used on broken bones at first. Later, a cast can replace the splint. What are the risks? In some cases, wearing a cast or splint can make it so that less blood gets to the wrist or hand or to the foot and toes. This can happen if there is a lot of swelling or if the cast or splint is too tight. Limited blood supply can cause a problem called compartment syndrome. This can lead to lasting damage. Symptoms include: ? Pain that gets worse. ? Numbness and tingling. ? Changes in skin color, including paleness or a bluish color. ? Cold fingers or toes. Other problems from wearing a cast or splint can include: ? Skin irritation that can cause: ? Itching. ? Rash. ? Skin sores. ? Skin infection. ? Limb stiffness or weakness. How to care for a cast or splint that cannot be taken off ? Do not put pressure on any part of the cast or splint until it is fully hardened. ? Do not stick anything inside the cast or splint to scratch your skin. ? Check the skin around the cast or splint every day. Tell your doctor if you see problems. ? You may put lotion on dry skin around the cast or splint. Do not put lotion on the skin under the cast or splint. ? Keep the cast or splint clean and dry. How to care for your splint that you can take off ? Wear the splint as told by your doctor. Take it off only as told by your doctor. ? Check the skin around it every day. Tell your doctor if you see problems. ? Loosen it if your fingers or toes: ? Tingle. ? Become numb. ? Turn cold and blue. ? Keep it clean and dry. Clean your splint as told by your doctor. Use mild soap and water and let it air-dry. Do not use heat on the splint. Follow these instructions at home: Bathing ? Do not take baths, swim, or use a hot tub until your doctor approves. Ask your doctor if you may take showers. You may only be allowed to take sponge baths. ? If the cast or splint is not waterproof: ? Do not let it get wet. ? Cover it with a watertight covering when you take a bath or a shower. Managing pain, stiffness, and swelling ? If told, put ice on the affected area. To do this: ? If you have a cast or splint that can be taken off, take it off as told by your doctor. ? Put ice in a plastic bag. ? Place a towel between your skin and the bag or between your cast and the bag. ? Leave the ice on for 20 minutes, 2?3 times a day. ? Take off the ice if your skin turns bright red. This is very important. If you cannot feel pain, heat, or cold, you have a greater risk of damage to the area. ? Move your fingers or toes often. ? Raise the injured area above the level of your heart while you are sitting or lying down. Safety ? Do not use your injured leg or foot to support your body weight until your doctor says that you can. ? Use crutches or other helpful (assistive) devices as told by your doctor. ? Ask your doctor when it is safe to drive if you have a cast or splint on part of your body. General instructions ? Take [id number] and prescription medicines only as told by your doctor. ? Return to your normal activities as told by your doctor. Ask your doctor what activities are safe for you. ? Keep all follow-up visits. This is important. Contact a doctor if: ? The skin around the cast or splint gets red or raw. ? The skin under the cast is very itchy or painful. ? Your cast or splint: ? Gets damaged. ? Feels very uncomfortable. ? Is too tight or too loose. ? Your cast becomes wet or it starts to have a soft spot or area. ? There is a bad smell coming from under your cast. ? You get an object stuck under your cast. Get help right away if: ? You get any symptoms of compartment syndrome, such as: ? Very bad pain or pressure under the cast. ? Numbness, tingling, coldness, or pale or bluish skin. ? The part of your body above or below the cast is swollen, and it turns a different color (is discolored). ? You cannot feel or move your fingers or toes. ? Your pain gets worse. ? There is fluid leaking through the cast. ? You have trouble breathing or shortness of breath. ? You have chest pain. These symptoms may be an emergency. Get help right away. Call your local emergency services (911 in the [place] ? Do not wait to see if (more content not included)... [facility] 02-12-2024 Note HNO ID: [id number] Author: CARLITOS HOLBROOK MD Service: ? Author Type: Physician Type: Progress Notes Filed: 02/12/2024 09:54 Note Text: Neurotology Clinic - Return Visit Presley De Dios is a 68 year old male: Found to have right-sided mixed hearing loss concerning for otosclerosis. Subjective: No changes in hearing. Objective: AANDO Ears: Right ear - EAC clear, TM intact no effusion or retraction Left ear - EAC clear, TM intact no effusion or retraction Neuro - Cranial Nerves: Right CN 7 - HB 1 Left CN 7 - HB 1 Unlabored respirations, no audible respiratory sounds/stridor Skin well perfused Salient findings: Right-sided tympanic facial nerve is in contact with the stapes. There is no evidence of fenestral otosclerosis on either side. There is no evidence of bilateral semicircular canal dehiscence. Assessment: Right sided mixed hearing loss in setting of restricted hearing of the left ear Plan: I suspect that the conductive component of the hearing loss is due to impingement of the facial nerve on the stapes superstructure. I advised a trial of hearing aids. Surgery could be considered, but I discussed with him the increased risk of facial nerve paralysis with this type of procedure. Return to clinic in 1 year. Carlitos Holbrook III, MD [facility] 02-12-2024 History of Present illness Narrative Images from the original note were not included. Neurotology Clinic - Return Visit Presley De Dios is a 68 year old male: Found to have right-sided mixed hearing loss concerning for otosclerosis. Subjective: No changes in hearing. Objective: A&O Ears: Right ear - EAC clear, TM intact no effusion or retraction Left ear - EAC clear, TM intact no effusion or retraction Neuro - Cranial Nerves: Right CN 7 - HB 1 Left CN 7 - HB 1 Unlabored respirations, no audible respiratory sounds/stridor Skin well perfused Salient findings: Right-sided tympanic facial nerve is in contact with the stapes. There is no evidence of fenestral otosclerosis on either side. There is no evidence of bilateral semicircular canal dehiscence. Assessment: Right sided mixed hearing loss in setting of restricted hearing of the left ear Plan: I suspect that the conductive component of the hearing loss is due to impingement of the facial nerve on the stapes superstructure. I advised a trial of hearing aids. Surgery could be considered, but I discussed with him the increased risk of facial nerve paralysis with this type of procedure. Return to clinic in 1 year. Carlitos Holbrook III, MD documented in this encounter [facility] 12-22-2023 Note HNO ID: [id number] Author: ABY PEREZ RT(Cristina) Service: ? Author Type: Technologist Type: Procedures Filed: 12/22/2023 07:56 Note Text: Radiology Service Progress Note PATIENT NAME: Presley De Dios DATE OF SERVICE: December 22, 2023 TIME: 7:53 AM PATIENT IDENTITY VERIFICATION COMPLETED USING TWO (2) IDENTIFIERS: Name and Date of confirmed by patient verbally and Name and Date of confirmed by identification band. FALL SCREENING: Has the patient had 2 falls in the last year or 1 fall with injury or currently using an Ambulatory Assistive Device (Walker, Cane, Wheelchair, Crutches, etc.)? No PATIENT GENDER DATA: Male PATIENT RELEVANT IMPLANT DATA REVIEWED: Not Applicable PATIENT PRESENTS WITH AN IMPLANTABLE OR ATTACHED CAREER TECHNICAL SUPERVISOR: No RADIOLOGY DEPARTMENT: CT; Exam(s) Completed: Temporal Bones PERIPHERAL IV DATA: Not applicable SIGNED BY: RT Trace(R) December 22, 2023 7:53 AM [facility] 12-22-2023 Procedure note Radiology Service Progress Note PATIENT NAME: Presley De Dios DATE OF SERVICE: December 22, 2023 TIME: 7:53 AM PATIENT IDENTITY VERIFICATION COMPLETED USING TWO (2) IDENTIFIERS: Name and Date of confirmed by patient verbally and Name and Date of confirmed by identification band. FALL SCREENING: Has the patient had 2 falls in the last year or 1 fall with injury or currently using an Ambulatory Assistive Device (Walker, Cane, Wheelchair, Crutches, etc.)? No PATIENT GENDER DATA: Male PATIENT RELEVANT IMPLANT DATA REVIEWED: Not Applicable PATIENT PRESENTS WITH AN IMPLANTABLE OR ATTACHED CAREER TECHNICAL SUPERVISOR: No RADIOLOGY DEPARTMENT: CT; Exam(s) Completed: Temporal Bones PERIPHERAL IV DATA: Not applicable SIGNED BY: RT Trace(R) December 22, 2023 7:53 AM [facility] 12-22-2023 Procedure note Radiology Service Progress Note PATIENT NAME: Presley De Dios DATE OF SERVICE: December 22, 2023 TIME: 7:53 AM PATIENT IDENTITY VERIFICATION COMPLETED USING TWO (2) IDENTIFIERS: Name and Date of confirmed by patient verbally and Name and Date of confirmed by identification band. FALL SCREENING: Has the patient had 2 falls in the last year or 1 fall with injury or currently using an Ambulatory Assistive Device (Walker, Cane, Wheelchair, Crutches, etc.)? No PATIENT GENDER DATA: Male PATIENT RELEVANT IMPLANT DATA REVIEWED: Not Applicable PATIENT PRESENTS WITH AN IMPLANTABLE OR ATTACHED CAREER TECHNICAL SUPERVISOR: No RADIOLOGY DEPARTMENT: CT; Exam(s) Completed: Temporal Bones PERIPHERAL IV DATA: Not applicable SIGNED BY: RT Trace(R) December 22, 2023 7:53 AM documented in this encounter [facility] 12-11-2023 Instructions Morteza Dailey MD - 12/11/2023 9:43 AM EDT Obtain CT scan and follow up as soon as scan is obtained documented in this encounter [facility] 12-11-2023 Note HNO ID: [id number] Author: CARLITOS HOLBROOK MD Service: ? Author Type: Physician Type: Progress Notes Filed: 12/11/2023 10:15 Note Text: SECTION OF OTOLOGY, NEUROTOLOGY AND LATERAL SKULL BASE SURGERY Head and Neck [place], [facility] Chief Complaint: Hearing loss HPI: Presley De Dios is a 68 year old male who reports a longstanding history of bilateral R > L hearing loss (at least 40 years according to patient). He feels over the last few years his hearing has declined to the point where he has difficulty understanding some conversations. 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 He does not report any otalgia, otorrhea, tinnitus, aural pressure, vertigo, or prior head and neck surgery/radiation. Hearing loss: See HPI Drainage: No Tinnitus: Some low level constant ringing, R > L Aural fullness: No Otalgia: No Vertigo: No Facial Palsy: No Facial Numbness: No Migraines: No Head trauma: No Meningitis: No Temporal bone fracture: No Prior Otologic surgery: No History of chronic or recurrent otitis media: No Family History of Hearing loss or [employer] neoplasm: Yes, mother and father. Patients 2 daughters also have hearing loss in their 40s. Past Medical History: He has a past medical history of Hyperlipidemia and Melanoma in situ of lower leg. Any history of cancer: No Any history of sleep apnea/CPAP use: No Past Surgical History: He has a past surgical history that includes colonoscopy and knee arthroscopy/surgery. Prior ear/skull surgery or head and neck surgery: No Social History: He reports that he quit smoking about 16 years ago. His smoking use included cigarettes. He has a 35 pack-year smoking history. He uses smokeless tobacco. He reports current alcohol use of about 2.0 standard drinks of alcohol per week. Working: [employer] Physical Exam: A comprehensive ear, nose, throat/head and neck exam was performed. Pertinent findings include: See nurse intake for vitals Ears: Right ear - Pinna normal EAC clear TM intact no effusion or retraction. Some diffuse myringosclerosis Left ear - Pinna normal EAC clear, TM intact no effusion or retraction. Diffuse myringosclerosis. Tuning Desmet 512 Hz Tuning Fork: Miller lateralizes to the right, Rinne AC>BC on the left. BC > AC on the right with 512Hz fork. Neuro - Cranial Nerves: CN V - intact Right CN 7 - HB 1 Left CN 7 - HB 1 No dysphonia or dysarthria Shoulder and/or SCM strength normal Constitutional: Well appearing, typically developed, no acute distress Eyes: extra-ocular muscles intact, sclera white, pupils grossly symmetric Lymphatic: no visible cervical lymphadenopathy Respiratory: unlabored breathing with no grossly audible stridor or wheezing Skin: no obvious skin lesions of visible skin of face, neck PROCEDURE NOTE: Otomicroscopy A microscope was used to evaluate the ears. Micro-instruments (curettes and/or suction) were used to clean the ear canal and obtain a clear view of the tympanic membranes. All relevant findings are detailed in the Physical Exam findings as listed above. The patient tolerated the procedure well and there were no complications. Audiogram (personally reviewed and interpreted): A screenshot of the audiogram from 09/27/2023 is included if available electronically at the time of the visit. Left mild to moderately severe sensorineural hearing loss Right moderately severe to profound mixed hearing loss Type A tymps bilaterally (reduced mobility on the right) WRS 64% @ 95db on the right and 84% @80db on the left Imaging (personally reviewed and interpreted): No imaging available Assessment: Left mild to moderately severe sensorineural hearing loss Right moderately severe to profound mixed hearing loss concerning for otosclerosis. Patient would be a good candidate for stapedotomy if otosclerosis is confirmed on CT given his negative Rinne on the right with a 512Hz fork. Patient would still need hearing aids even if we were able to close the air bone gap on his right side. This patient has been medically evaluated and is a candidate for hearing device(s). This patient requires functions that exist in higher level digital hearing devices such as automatic feedback reduction, automatic noise reduction/suppression, multiple programs and programmable volume controls. I believe that a digital hearing devices are necessary for the patient?s success in znngji-krixudkn-dbltlgkq development and/or education/vocation achievement. Plan: - CT temporal bone - Hearing aid eval. Can wait on this until after CT temporal bone. - Return to clinic after imaging Morteza Dailey MD For the service of Carlitos Holbrook MD I performed a history, reviewed rodriguez exam findings and diagnostic studies, and discussed (more content not included)... [facility] 12-11-2023 History of Present illness Narrative Images from the original note were not included. SECTION OF OTOLOGY, NEUROTOLOGY AND LATERAL SKULL BASE SURGERY [facility] [place], [facility] Chief Complaint: Hearing loss HPI: Presley De Dios is a 68 year old male who reports a longstanding history of bilateral R > L hearing loss (at least 40 years according to patient). He feels over the last few years his hearing has declined to the point where he has difficulty understanding some conversations. 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 He does not report any otalgia, otorrhea, tinnitus, aural pressure, vertigo, or prior head and neck surgery/radiation. Hearing loss: See HPI Drainage: No Tinnitus: Some low level constant ringing, R > L Aural fullness: No Otalgia: No Vertigo: No Facial Palsy: No Facial Numbness: No Migraines: No Head trauma: No Meningitis: No Temporal bone fracture: No Prior Otologic surgery: No History of chronic or recurrent otitis media: No Family History of Hearing loss or [employer] neoplasm: Yes, mother and father. Patients 2 daughters also have hearing loss in their 40s. Past Medical History: He has a past medical history of Hyperlipidemia and Melanoma in situ of lower leg. Any history of cancer: No Any history of sleep apnea/CPAP use: No Past Surgical History: He has a past surgical history that includes colonoscopy and knee arthroscopy/surgery. Prior ear/skull surgery or head and neck surgery: No Social History: He reports that he quit smoking about 16 years ago. His smoking use included cigarettes. He has a 35 pack-year smoking history. He uses smokeless tobacco. He reports current alcohol use of about 2.0 standard drinks of alcohol per week. Working: [employer] Physical Exam: A comprehensive ear, nose, throat/head and neck exam was performed. Pertinent findings include: See nurse intake for vitals Ears: Right ear - Pinna normal EAC clear TM intact no effusion or retraction. Some diffuse myringosclerosis Left ear - Pinna normal EAC clear, TM intact no effusion or retraction. Diffuse myringosclerosis. Tuning Desmet 512 Hz Tuning Fork: Miller lateralizes to the right, Rinne AC>BC on the left. BC > AC on the right with 512Hz fork. Neuro - Cranial Nerves: CN V - intact Right CN 7 - HB 1 Left CN 7 - HB 1 No dysphonia or dysarthria Shoulder and/or SCM strength normal Constitutional: Well appearing, typically developed, no acute distress Eyes: extra-ocular muscles intact, sclera white, pupils grossly symmetric Lymphatic: no visible cervical lymphadenopathy Respiratory: unlabored breathing with no grossly audible stridor or wheezing Skin: no obvious skin lesions of visible skin of face, neck PROCEDURE NOTE: Otomicroscopy A microscope was used to evaluate the ears. Micro-instruments (curettes and/or suction) were used to clean the ear canal and obtain a clear view of the tympanic membranes. All relevant findings are detailed in the Physical Exam findings as listed above. The patient tolerated the procedure well and there were no complications. Audiogram (personally reviewed and interpreted): A screenshot of the audiogram from 09/27/2023 is included if available electronically at the time of the visit. Left mild to moderately severe sensorineural hearing loss Right moderately severe to profound mixed hearing loss Type A tymps bilaterally (reduced mobility on the right) WRS 64% @ 95db on the right and 84% @80db on the left Imaging (personally reviewed and interpreted): No imaging available Assessment: Left mild to moderately severe sensorineural hearing loss Right moderately severe to profound mixed hearing loss concerning for otosclerosis. Patient would be a good candidate for stapedotomy if otosclerosis is confirmed on CT given his negative Rinne on the right with a 512Hz fork. Patient would still need hearing aids even if we were able to close the air bone gap on his right side. This patient has been medically evaluated and is a candidate for hearing device(s). This patient requires functions that exist in higher level digital hearing devices such as automatic feedback reduction, automatic noise reduction/suppression, multiple programs and programmable volume controls. I believe that a digital hearing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
== END 2025-02-17 10:11 | disposition home or self-care (01) ==
PROVIDERS: PCP Family Medicine; Visit Provider Family Medicine
DX: Z12.5 Encounter for screening for malignant neoplasm of prostate (principal)
CPT/HCPCS: 36415; G0103